=== PATIENT | female | born 1945 | race Caucasian/White ===

== ENCOUNTER → 2017-02-14 | Outpatient (CLI) | payer OTHER ==
[~2017-02-14] MED LIST: CETI10TA84 PO; LPT/40 PO; OFLO0.3S4 OPL; PRED1SUS3 OPL
== END | disposition home or self-care (01) ==
LOC: C.LABBFT 14:14
PROVIDERS: ATTEND Nurse Practitioner
DX: R39.9 Unspecified symptoms and signs involving the genitourinary system (principal)

== ENCOUNTER → 2017-03-29 | Outpatient (CLI) | payer OTHER ==
[2017-03-29 12:37] LABS: HEMATOCRIT 41.9 % (37-47); MEAN CELL VOLUME 90.1 fL (80-100); MEAN CORPUSCULAR HEMOGLOBIN 30.5 pg (25-34); MEAN CORPUSCULAR HGB CONC 33.9 g/dl (32-36); MEAN PLATELET VOLUME 11.5 fL (7.4-10.4); PLATELET COUNT 292 K/uL (130-400); RED BLOOD COUNT 4.65 M/uL (4.2-5.4); WHITE BLOOD COUNT 11.21 K/uL (4.8-10.8)
[2017-03-29 13:24] LABS: ALT/SGPT 19 U/L (12-78); BLOOD UREA NITROGEN 13 mg/dl (7-18); BUN/CREATININE RATIO 19.1 (10-20); CALCIUM 9.6 mg/dl (8.5-10.1); CARBON DIOXIDE 28 mmol/L (21-32); CHLORIDE 107 mmol/L (98-107); CHOLESTEROL 266 mg/dl (0-200); CREATININE 0.66 mg/dl (0.60-1.20); GLUCOSE 87 mg/dl (70-99); POTASSIUM 4.2 mmol/L (3.5-5.1); SODIUM 140 mmol/L (136-145); TRIGLYCERIDES 193 mg/dl (0-150); VERY LOW DENSITY LIPOPROT CALC 39 mg/dl
[2017-03-29 13:29] LABS: ALB/GLOB RATIO 1.2 (0.9-2); ALKALINE PHOSPHATASE 75 U/L (45-117); AST/SGOT 14 U/L (15-37); HDL CHOLESTEROL 44 mg/dl; LDL CHOLESTEROL CALCULATED 183 mg/dl
== END | disposition home or self-care (01) ==
LOC: C.LABBFT 10:12
PROVIDERS: ATTEND Nurse Practitioner
DX: E78.00 Pure hypercholesterolemia, unspecified (principal)

== ENCOUNTER 2019-12-26 00:12 | Inpatient (IN) ==
[2019-12-26 00:47] LABS: Basophils # (auto) 0.08 K/uL (0-0.2); Basophils % (auto) 0.6 %; Eosinophils # (auto) 0.93 K/uL (0-0.5); Eosinophils % (auto) 7.5 %; Hematocrit (blood only) 41.5 % (37-47); Hemoglobin 14.3 g/dL (12.0-16.0); Immature Granulocytes # (auto) 0.02 K/uL (0.00-0.02); Immature Granulocytes % (auto) 0.2 %; Lymphocytes # (auto) 3.13 K/uL (1.2-3.4); Lymphocytes % (auto) 25.2 %; Mean Corpuscular Hemoglobin 30.7 pg (25-34); Mean Corpuscular Hgb Conc 34.5 g/dL (32-36); Mean Corpuscular Volume 89.1 fL (80-100); Mean Platelet Volume 11.1 fL (7.4-10.4); Monocytes # (auto) 0.84 K/uL (0.11-0.59); Monocytes % (auto) 6.8 %; Neutrophils # (auto) 7.43 K/uL (1.4-6.5); Neutrophils % (auto) 59.7 %; Platelet Count 255 K/uL (130-400); RDW Coefficient of Variation 13.1 % (11.5-14.5); RDW Standard Deviation 42.5 fL (36.4-46.3); Red Blood Count 4.66 M/uL (4.2-5.4); White Blood Count 12.43 K/uL (4.8-10.8)
[2019-12-26] MEDS ORDERED: ASPIRIN CHEW 324 MG PO STA (00:48)
[2019-12-26] MEDS ORDERED: ONDANSETRON INJ 2 MG/ML 2 ML VIAL IV STA (00:48)
[2019-12-26] MEDS ORDERED: fentaNYL citrate 100 MCG/2 ML VIAL IV PRN (00:48)
[2019-12-26 00:50] LABS: iSTAT Creatinine 0.7 mg/dl (0.6-1.3); iSTAT Ionized Calcium 1.24 mmol/l (1.12-1.32); iSTAT Potassium 3.8 mmol/L (3.3-5.0)
--- NOTE | 2019-12-26 00:51 | Emergency Department Note ---
History of Present Illness General Chief complaint: Weakness Stated complaint: WEAK,RIGHT ARM PAIN,BEE STING Time Seen by Provider: 12/26/19 00:21 Source: patient Mode of arrival: ambulatory Limitations: no limitations History of Present Illness Provider complaint: Right arm pain Onset (ago): day(s) 2 Location: upper extremity Radiation: other (Chest) Severity: moderate Maximum Pain Intensity: 9 Quality: + constant Relieved By: + none Exacerbated By: + movement Associated symptoms: + diaphoresis, + nausea/vomiting, + shortness of breath and + other (Dizziness) Treatments prior to arrival: other (Tylenol) This is a 74-year-old female who presents from home complaining of right arm pain. Patient states 2 days ago she was stung by a yellow jacket in the right arm. Patient states she has had right arm pain since. Patient denies any overlying rash or sores, or swelling to the area of the envenomation. Patient also noticed yesterday that she had some mild pain in her chest. No radiation into the back, neck, or jaw. Patient states she had a mild headache yesterday and took some Tylenol and has not had a headache since. Patient was difficult to obtain a history from and was easily distracted by other things that were going on in the room with staff including her EKG. With additional persistent questioning, patient admitted to accompanying dizziness and shortness of breath which seemed worse with exertion. Patient describes going up the steps tonight and by the time she got to the top of the steps having increased chest pain, trouble breathing, dizziness, and sweating. Patient denies that she is ever had these symptoms previously. Patient denies any pain or discomfort into the left upper extremity. Patient denies any cardiac history. Patient denies any significant family history of coronary artery disease. Patient states she takes no medications. She denies use of tobacco or alcohol. Patient does admit to recent increased stress. Patient denies any change in bowel or bladder function, does admit to current nausea. Patient denies any history of gastritis/GERD. Pt seen during a time of high acuity and national emergency pandemic while wearing PPE. During questioning, nursing staff was able to obtain an EKG. While this did have some baseline artifact it was concerning for evolving ACS. I did ask for a repeat EKG to be immediately done to try and clear up the artifact and monitor for evolving changes. Home Medications Home Medications Medication Instructions Recorded Confirmed Type No Known Home Medications 12/26/19 12/26/19 History Allergies Allergy/AdvReac Type Severity Reaction Status Date / Time No Known Allergies Allergy Unknown ` Verified 12/26/19 00:47 Past Med/Surg History Social History Preferred Language: Burmese Communication Ability: Effective Business Operations Director Required: No Beliefs That Will Affect Care: None Current Living Situation: Spouse Other Information That Helps Us Care for You: No Feels Safe at Home: Yes Safety Concerns: Feels Safe At This Time Smoking Status: Never smoker Hx Alcohol Use: No Hx Substance Use: No Review of Systems See HPI for pertinent positives & negatives. and A total of 10 systems reviewed and were otherwise negative Physical Exam Vital Signs Vital Signs - 24 hr 12/26/19 00:14 12/26/19 00:23 12/26/19 01:11 Temperature 36.5 C Temperature Source Oral Pulse Rate 60 Pulse Rate [Right] 72 Pulse Rhythm [Right] Regular Pulse Strength [Right] Normal Respiratory Rate 20 16 Respiratory Effort / Characteristics Non-Labored Spontaneous Non-Labored Spontaneous Respiratory Depth Normal Normal Blood Pressure 160/77 H Blood Pressure [Right Arm] 167/72 H Blood Pressure Mean 104 Blood Pressure Mean [Right Arm] 103 Pulse Oximetry 100 95 96 Oxygen Delivery Method Room Air Room Air Room Air Sepsis Action Taken by Nursing No Action Required 12/26/19 01:22 Temperature Temperature Source Pulse Rate 62 Pulse Rate [Right] Pulse Rhythm [Right] Pulse Strength [Right] Respiratory Rate 16 Respiratory Effort / Characteristics Respiratory Depth Blood Pressure 148/94 H Blood Pressure [Right Arm] Blood Pressure Mean Blood Pressure Mean [Right Arm] Pulse Oximetry 98 Oxygen Delivery Method Room Air Sepsis Action Taken by Nursing GENERAL: alert, well appearing, well nourished, no distress, non-toxic, odd affect EYE EXAM: normal conjunctiva, PERRL and EOM's grossly intact OROPHARYNX: no exudate, no erythema, lips, buccal mucosa, and tongue normal and mucous membranes are moist NECK: supple, no nuchal rigidity, no adenopathy, non-tender LUNGS: Clear to auscultation. Normal chest wall mechanics, no w/r/r HEART: no murmurs, S1 normal and S2 normal, mild pain with palpation of the lower sternal border ABDOMEN: abdomen soft, non-tender, normo-active bowel sounds, no masses, no rebound or guarding. BACK: Back is symmetrical on inspection and there is no deformity, no midline tenderness, no CVA tenderness. SKIN: no rashes and no bruising UPPER EXTREMITIES: upper extremities are grossly normal. FROM, nml pulses b/l. No evidence of insect bite/sting or other envenomation. No urticaria, no edema, no cellulitis. No joint effusions, normal sensation bilaterally. No reproducible tenderness with palpation. LOWER EXTREMITIES: No pitting edema. FROM, nml pulses b/l. No calf tenderness bilaterally. NEURO EXAM: Normal sensorium, cranial nerves II-XII grossly intact, normal speech, no gross weakness of arms, no gross weakness of legs. Gross sensation intact. No facial droop. No ataxia. Course Course 0025: Due to concern for possible evolving ACS, despite no clear STEMI criteria, I asked that Dr. Segura be paged. I also involved case management to ascertain patient's PCP and try to obtain an old EKG. There were no old EKGs in our EMR. Orders were placed in anticipation of likely heart alert. After chest x-ray was performed at bedside I added aspirin, Zofran, and fentanyl. Nitroglycerin was avoided due to my concern for evolving right-sided NM. 0035: I contacted Dr. Segura, interventional cardiology. After discussion of atypical presentation and review or EKG, heart alert called at 0043. 0120: Dr. Segura now in the emergency room. Administered Medications Fentanyl Citrate (Fentanyl Citrate) 50 mcg IV Q15M PRN PRN Reason: Pain Stop: 01/09/20 00:47 Last Admin: 12/26/19 00:56 Dose: 50 mcg Documented by: [id number] Sodium Chloride (Nss 1000ml) 750 mls @ 100 mls/hr IV .Q7H30M SHERYL Stop: 12/26/19 09:59 Last Admin: 12/26/19 02:45 Dose: 100 mls/hr Documented by: [id number] Discontinued Medications Aspirin (Aspirin) 324 mg PO NOW STA Stop: 12/26/19 00:49 Last Admin: 12/26/19 00:56 Dose: 324 mg Documented by: [id number] Atropine Sulfate (Atropine Sulfate) Confirm Administered Dose 1 mg IV .[facility] ONE Stop: 12/26/19 01:46 Last Admin: 12/26/19 02:18 Dose: 0.5 mg Documented by: [id number] Eptifibatide (Integrilin (Pharmacy Operations Coordinator Use Only)) Confirm Administered Dose 40 mg IV .[facility] ONE Stop: 12/26/19 01:52 Last Admin: 12/26/19 02:18 Dose: 4.5 ml Documented by: [id number] Fentanyl Citrate (Fentanyl Citrate) Confirm Administered Dose 100 mcg .ROUTE .[facility] ONE Stop: 12/26/19 01:10 Last Admin: 12/26/19 02:16 Dose: 25 mcg Documented by: [id number] Heparin Sodium (Porcine) (Heparin Iv Bolus (Pharmacy Operations Coordinator Use Only)) Confirm Administered Dose 10,000 units .ROUTE .[facility] ONE Stop: 12/26/19 01:10 Last Admin: 12/26/19 02:17 Dose: 9,000 units Documented by: [id number] Heparin Sodium (Porcine) (Heparin Iv Bolus (Pharmacy Operations Coordinator Use Only)) Confirm Administered Dose 10,000 units .ROUTE .[facility] ONE Stop: 12/26/19 01:42 Last Admin: 12/26/19 02:22 Dose: Not Given Documented by: [id number] Heparin Sodium/Sodium Chloride (Heparin/Nss 1000 Unit/500ml Flush Bag) Confirm Administered Dose 3,000 units IV .[facility] ONE Stop: 12/26/19 01:11 Last Admin: 12/26/19 02:17 Dose: 3,000 units Documented by: [id number] Metoprolol Tartrate (Lopressor) Confirm Administered Dose 5 mg IV .[facility] [employer] ONE Stop: 12/26/19 01:56 Last Admin: 12/26/19 02:18 Dose: 2.5 mg Documented by: [id number] Midazolam HCl (Versed) Confirm Administered Dose 2 mg .ROUTE .[facility] ONE Stop: 12/26/19 01:11 Last Admin: 12/26/19 02:17 Dose: 1 mg Documented by: [id number] Nicardipine HCl (Cardene) Confirm Administered Dose 25 mg .ROUTE .[facility] ONE Stop: 12/26/19 01:10 Last Admin: 12/26/19 02:16 Dose: 25 mg Documented by: [id number] Nitroglycerin/Dextrose (Nitroglycerin/D5w 100 Mcg/Ml 20ml Syringe) Confirm Administered Dose 2,000 mcg .ROUTE .STK-MED ONE Stop: 12/26/19 01:11 Last Admin: 12/26/19 02:17 Dose: 2,000 mcg Documented by: [id number] Ondansetron HCl (Zofran) 4 mg IV NOW STA Stop: 12/26/19 00:49 Last Admin: 12/26/19 00:56 Dose: 4 mg Documented by: [id number] Ticagrelor (Brilinta) 180 mg PO ONE ONE Stop: 12/26/19 01:03 Last Admin: 12/26/19 01:04 Dose: 180 mg Documented by: [id number] Critical Care Time Critical Care Time: Yes Total Critical Care Time: 38 Critical care of 38 min performed to assess and manage high likelihood of life- threatening ACS, involving serial EKGs, labs, and imaging performed with asses sment to evaluate ACS diagnosis with frequent reassessment. This time includes bedside time, treatment discussions with patient/family/consultants, documentation time and excludes procedure time. Medical Decision Making Differential Diagnosis Differential diagnoses includes but is not limited to acute coronary syndrome, myocardial infarction, pericarditis, pulmonary embolus, aortic dissection, pneumonia, pneumothorax, musculoskeletal, shingles, esophageal. Medical Records Attestation: I reviewed the patient's medical records. Home Medications Current Medication List: was personally reviewed by me Laboratory Data Attestation: I reviewed the patient's lab results. Result diagrams: 12/26/19 00:30 12/26/19 00:30 Lab Results 12/26/19 12/26/19 12/26/19 Range/Units 00:30 00:30 00:30 WBC 12.43 H (4.8-10.8) K/uL RBC 4.66 (4.2-5.4) M/uL Hgb 14.3 (12.0-16.0) g/dL POC Hgb (12.0-16.0) g/dl Hct 41.5 (37-47) % POC Hct (37-47) % MCV 89.1 (80-100) fL MCH 30.7 (25-34) pg MCHC 34.5 (32-36) g/dL RDW Std Deviation 42.5 (36.4-46.3) fL RDW Coeff of Artie 13.1 (11.5-14.5) % Plt Count 255 (130-400) K/uL MPV 11.1 H (7.4-10.4) fL Immature Gran % (Auto) 0.2 % Neut % (Auto) 59.7 % Lymph % (Auto) 25.2 % [place] % (Auto) 6.8 % Eos % (Auto) 7.5 % Baso % (Auto) 0.6 % Neut # (Auto) 7.43 H (1.4-6.5) K/uL Lymph # (Auto) 3.13 (1.2-3.4) K/uL [place] # (Auto) 0.84 H (0.11-0.59) K/uL Eos # (Auto) 0.93 H (0-0.5) K/uL Baso # (Auto) 0.08 (0-0.2) K/uL Immature Gran # (Auto) 0.02 (0.00-0.02) K/uL PT 10.7 (9.0-12.0) Seconds INR 1.0 (0.9-1.1) APTT 26.5 (21.0-31.0) Seconds PTT Ratio 0.9 Activ Coag Time Kaolin (94-140) SECONDS POC Sodium (135-144) mmol/L Sodium 139 (136-145) mmol/L POC Potassium (3.3-5.0) mmol/L Potassium 3.7 (3.5-5.1) mmol/L POC Chloride (101-112) mmol/L Chloride 108 H (98-107) mmol/L Carbon Dioxide 27 (21-32) mmol/L POC Total CO2 (24-31) mmol/L Anion Gap 4.0 (3-11) POC Anion Gap (16-25) mmol/L POC BUN (7-18) mg/dl BUN 22 H (7-18) mg/dl Creatinine 0.89 (0.6-1.2) mg/dl POC Creatinine (0.6-1.3) mg/dl Est Cr Clr Drug Dosing Not Reportable Est GFR ( Amer) 73.5 Est GFR (Non-Af Amer) 63.4 BUN/Creatinine Ratio 24.4 H (10-20) Glucose 170 H (70-99) mg/dl POC Glucose (other) (70-99) mg/dl Calcium 9.5 (8.5-10.1) mg/dl POC Ioniz Calcium Juan David (1.12-1.32) mmol/l Magnesium 2.1 (1.8-2.4) mg/dl Total Bilirubin 0.3 (0.2-1) mg/dl AST 11 L (15-37) U/L ALT 18 (12-78) U/L Alkaline Phosphatase 78 (45-117) U/L Total Creatine Kinase 60 (26-192) U/L CK-MB (CK-2) 2.8 (0.5-3.6) ng/ml CK/CKMB % Calc 4.7 H (0-3.0) POC Troponin I (0-0.045) ng/ml Troponin I 0.364 H* (0-0.045) ng/ml Total Protein 7.3 (6.4-8.2) gm/dl Albumin 3.9 (3.4-5.0) gm/dl Globulin 3.4 (2.5-4.0) gm/dl Albumin/Globulin Ratio 1.1 (0.9-2) Lipase 102 (73-393) U/L TSH 1.410 (0.300-4.500) uIu/ml Blood Type Antibody Screen 12/26/19 12/26/19 12/26/19 Range/Units 00:35 00:38 00:50 WBC (4.8-10.8) K/uL RBC (4.2-5.4) M/uL Hgb (12.0-16.0) g/dL POC Hgb 15.0 (12.0-16.0) g/dl Hct (37-47) % POC Hct 44 (37-47) % MCV (80-100) fL MCH (25-34) pg MCHC (32-36) g/dL RDW Std Deviation (36.4-46.3) fL RDW Coeff of Artie (11.5-14.5) % Plt Count (130-400) K/uL MPV (7.4-10.4) fL Immature Gran % (Auto) % Neut % (Auto) % Lymph % (Auto) % [place] % (Auto) % Eos % (Auto) % Baso % (Auto) % Neut # (Auto) (1.4-6.5) K/uL Lymph # (Auto) (1.2-3.4) K/uL [place] # (Auto) (0.11-0.59) K/uL Eos # (Auto) (0-0.5) K/uL Baso # (Auto) (0-0.2) K/uL Immature Gran # (Auto) (0.00-0.02) K/uL PT (9.0-12.0) Seconds INR (0.9-1.1) APTT (21.0-31.0) Seconds PTT Ratio Activ Coag Time Kaolin (94-140) SECONDS POC Sodium 139 (135-144) mmol/L Sodium (136-145) mmol/L POC Potassium 3.8 (3.3-5.0) mmol/L Potassium (3.5-5.1) mmol/L POC Chloride 103 (101-112) mmol/L Chloride (98-107) mmol/L Carbon Dioxide (21-32) mmol/L POC Total CO2 24 (24-31) mmol/L Anion Gap (3-11) POC Anion Gap 17.0 (16-25) mmol/L POC BUN 21 H (7-18) mg/dl BUN (7-18) mg/dl Creatinine (0.6-1.2) mg/dl POC Creatinine 0.7 (0.6-1.3) mg/dl Est Cr Clr Drug Dosing Est GFR ( Amer) Est GFR (Non-Af Amer) BUN/Creatinine Ratio (10-20) Glucose (70-99) mg/dl POC Glucose (other) 171 H (70-99) mg/dl Calcium (8.5-10.1) mg/dl POC Ioniz Calcium Juan David 1.24 (1.12-1.32) mmol/l Magnesium (1.8-2.4) mg/dl Total Bilirubin (0.2-1) mg/dl AST (15-37) U/L ALT (12-78) U/L Alkaline Phosphatase (45-117) U/L Total Creatine Kinase (26-192) U/L CK-MB (CK-2) (0.5-3.6) ng/ml CK/CKMB % Calc (0-3.0) POC Troponin I 0.25 H (0-0.045) ng/ml Troponin I (0-0.045) ng/ml Total Protein (6.4-8.2) gm/dl Albumin (3.4-5.0) gm/dl Globulin (2.5-4.0) gm/dl Albumin/Globulin Ratio (0.9-2) Lipase (73-393) U/L TSH (0.300-4.500) uIu/ml Blood Type Cancelled Antibody Screen Cancelled 12/26/19 Range/Units 01:53 WBC (4.8-10.8) K/uL RBC (4.2-5.4) M/uL Hgb (12.0-16.0) g/dL POC Hgb (12.0-16.0) g/dl Hct (37-47) % POC Hct (37-47) % MCV (80-100) fL MCH (25-34) pg MCHC (32-36) g/dL RDW Std Deviation (36.4-46.3) fL RDW Coeff of Artie (11.5-14.5) % Plt Count (130-400) K/uL MPV (7.4-10.4) fL Immature Gran % (Auto) % Neut % (Auto) % Lymph % (Auto) % [place] % (Auto) % Eos % (Auto) % Baso % (Auto) % Neut # (Auto) (1.4-6.5) K/uL Lymph # (Auto) (1.2-3.4) K/uL [place] # (Auto) (0.11-0.59) K/uL Eos # (Auto) (0-0.5) K/uL Baso # (Auto) (0-0.2) K/uL Immature Gran # (Auto) (0.00-0.02) K/uL PT (9.0-12.0) Seconds INR (0.9-1.1) APTT (21.0-31.0) Seconds PTT Ratio Activ Coag Time Kaolin 384 H (94-140) SECONDS POC Sodium (135-144) mmol/L Sodium (136-145) mmol/L POC Potassium (3.3-5.0) mmol/L Potassium (3.5-5.1) mmol/L POC Chloride (101-112) mmol/L Chloride (98-107) mmol/L Carbon Dioxide (21-32) mmol/L POC Total CO2 (24-31) mmol/L Anion Gap (3-11) POC Anion Gap (16-25) mmol/L POC BUN (7-18) mg/dl BUN (7-18) mg/dl Creatinine (0.6-1.2) mg/dl POC Creatinine (0.6-1.3) mg/dl Est Cr Clr Drug Dosing Est GFR ( Amer) Est GFR (Non-Af Amer) BUN/Creatinine Ratio (10-20) Glucose (70-99) mg/dl POC Glucose (other) (70-99) mg/dl Calcium (8.5-10.1) mg/dl POC Ioniz Calcium Juan David (1.12-1.32) mmol/l Magnesium (1.8-2.4) mg/dl Total Bilirubin (0.2-1) mg/dl AST (15-37) U/L ALT (12-78) U/L Alkaline Phosphatase (45-117) U/L Total Creatine Kinase (26-192) U/L CK-MB (CK-2) (0.5-3.6) ng/ml CK/CKMB % Calc (0-3.0) POC Troponin I (0-0.045) ng/ml Troponin I (0-0.045) ng/ml Total Protein (6.4-8.2) gm/dl Albumin (3.4-5.0) gm/dl Globulin (2.5-4.0) gm/dl Albumin/Globulin Ratio (0.9-2) Lipase (73-393) U/L TSH (0.300-4.500) uIu/ml Blood Type Antibody Screen Imaging Data My Impression: X-ray: I interpreted the following studies. Chest: A single view study of the chest was reviewed and was negative for cardiomegaly, focal infiltrate, effusion, pulmonary edema, or wide mediastinum. ECG Data Attestation: I personally reviewed and interpreted this ECG as follows: Indication: + chest pain Rate (beats per minute): 60 Rhythm: + normal sinus ECG Intervals/blocks: + Normal QRS and + Normal QT ECG [place]: + Normal ECG ST segments: + ST depression (V2-V5, I and aVL) and + ST elevation (possible early 0.5mm in III, aVF) ECG Findings: + Other (Baseline artifact noted) Comparison ECG Date: no prior available Blood Pressure Blood Pressure Findings: Elevated blood pressure Blood Pressure Disposition: further management by hospitalist SHIRAZ Narrative 74-year-old female presenting from home with complaints of right arm pain and dizziness initially. Patient had concerning EKG and with additional questioning reported additional concerning symptoms. Serial EKGs were performed as a precaution and due to concern for artifact obscuring possible evolving ST elevat ion inferiorly. I contacted the director consumer affairs, Dr. Segura, to discuss the case. Labs had already been drawn and sent, bedside chest x-ray performed at that time. No evidence of obvious dissection or infiltrate on the chest x-ray. Patient given aspirin, Zofran, fentanyl. After additional discussion with Dr. Segura, Brilinta was also ordered. Patient remained hemodynamically stable. Nitro was avoided due to concern for right-sided infarct. Patient reported mild improvement in pain after fentanyl, and stated nausea was improved after addition of Zofran. Patient remained hemodynamically stable in the emergency room and was taken by Dr. Segura in the Pharmacy Operations Coordinator team for cardiac catheterization. An order was placed for continuous cardiac monitoring. The monitor shows a rate of 60 with normal sinus rhythm. Impression & Plan ACS (acute coronary syndrome), Arm pain, right, Dizziness, Nausea, Chest pain, FERNÁNDEZ (dyspnea on exertion) Discharge Plan Visit Data *Final* Discharge Date/Time: 12/26/19 01:22 Chief Complaint: Weakness Stated Complaint: WEAK,RIGHT ARM PAIN,BEE STING ED Provider: Clarissa Craven Discharge Problem: ACS (acute coronary syndrome), Arm pain, right, Dizziness, Nausea, Chest pain, FERNÁNDEZ (dyspnea on exertion) Patient Disposition: Still a Patient Discharge Instructions Interventions: ED Discharge Assessment Last Done: 12/26/19 01:22 Discharge Problem: Chest pain Qualifiers: Chest pain type: chest pain due to myocardial ischemia Ischemic chest pain type: unspecified angina pectoris type Qualified Code(s): I25.9 - Chronic ischemic heart disease, unspecified
[2019-12-26 01:00] LABS: Partial Thromboplastin Ratio 0.9; Partial Thromboplastin Time 26.5 Seconds (21.0-31.0); Prothrombin Time 10.7 Seconds (9.0-12.0)
[2019-12-26] MEDS ORDERED: TICAGRELOR 90 MG TAB PO ONE (01:02)
[2019-12-26 01:05] LABS: Alanine Aminotransferase 18 U/L (12-78); Albumin Level 3.9 gm/dl (3.4-5.0); Aspartate Aminotransferase 11 U/L (15-37); BUN Creatinine Ratio 24.4 (10-20); Blood Urea Nitrogen 22 mg/dl (7-18); Calcium 9.5 mg/dl (8.5-10.1); Carbon Dioxide 27 mmol/L (21-32); Chloride 108 mmol/L (98-107); Est GFR (African American) 73.5; Est GFR (Non-African American) 63.4; Glucose 170 mg/dl (70-99); Lipase 102 U/L (73-393); Magnesium 2.1 mg/dl (1.8-2.4); Potassium 3.7 mmol/L (3.5-5.1); Sodium 139 mmol/L (136-145)
[2019-12-26] MEDS ORDERED: HEPARIN (PORCINE) 1000 UNIT/ML 10 ML (CATH LAB USE ONLY) ONE ×2 (01:09→01:41)
[2019-12-26] MEDS ORDERED: fentaNYL citrate 100 MCG/2 ML VIAL ONE (01:09)
[2019-12-26] MEDS ORDERED: NiCARDipine HCL INJ 2.5 MG/ML 10 ML AMP ONE (01:09)
[2019-12-26] MEDS ORDERED: MIDAZOLAM HCL 1 MG/ML 2ML VIAL ONE (01:10)
[2019-12-26] MEDS ORDERED: NITROGLYCERIN/D5W 100MCG/ML 20ML SYR ONE (01:10)
[2019-12-26 01:19] LABS: Albumin Globulin Ratio 1.1 (0.9-2); Alkaline Phosphatase 78 U/L (45-117); Bilirubin,Total 0.3 mg/dl (0.2-1); Creatine Kinase 60 U/L (26-192); Creatine Kinase MB 2.8 ng/ml (0.5-3.6); Globulin 3.4 gm/dl (2.5-4.0); Total Protein 7.3 gm/dl (6.4-8.2); Troponin I 0.364 ng/ml (0-0.045)
--- NOTE | 2019-12-26 01:30 | Pre Anesthesia Assessment ---
Date of Service December 26, 2019 Pre Sedation Assessment Vital Signs Temp Pulse Pulse Resp BP BP Pulse Ox 12/26/19 01:22 62 16 148/94 H 98 12/26/19 01:11 72 16 167/72 H 96 12/26/19 00:23 95 12/26/19 00:14 97.7 F 60 20 160/77 H 100 Cardiovascular RRR, no murmur, no edema Respiratory normal respiratory effort, lungs clear to auscultation Pre-Sedation Airway Assessment Smoking Status: Former smoker Hx Sleep Apnea: No Hx Difficult Intubation: No Short, Thick Neck: No Thyromental Distance: > or= 3.5 Finger Breadths Mallampati Class: II ASA: ASA3 Procedure Planning Contraindications for Sedation: none Current Medications Reviewed: Yes Notes The planned sedation has been discussed with the patient. Informed Consent was obtained. I have identified the patient, determined the appropriateness of sedation and have assessed the patient immediately prior to the procedure. All medicine(s) and interventions are by my order.
--- NOTE | 2019-12-26 01:30 | Cardiology Consultation ---
Date of Consultation December 26, 2019 Assessment & Plan (1) ACS (acute coronary syndrome): Presentation concerning for inferior/posterior STEMI and recommend proceeding with emergent cardiac catheterization and possible primary PCI. No apparent contraindications to procedure. Discussed risks, benefits, alternatives of procedure with patient and they are willing to proceed. Given ticagrelor 180 mg in the ED. Further recommendations pending findings of coronary angiography. History of Present Illness History of Present Illness 74-year-old woman here with acute chest symptoms and ECG concerning for acute OK. Patient seen emergently in the ED after heart alert activated after serial ECGs. No prior cardiac history. Cardiac risk factors include untreated dyslipidemia with prior LDL of 228. Denies other significant medical issues and is on no medications. Patient describes right arm pain/numbness for the last 2 days which she initially attributed to a bee sting. During this time she has been more short of breath with exertion. Tonight symptoms were worse and had an episode where when attempting to go upstairs became dizzy and felt like she was going to pass out. This was associated with a cramping epigastric discomfort and diaphoresis. Denies similar symptoms in the past. Hemodynamically stable on arrival. ECG showed borderline inferior ST elevations with ST depressions in V1 through V3. Initial troponin positive at 0.364. Allergies Allergy/AdvReac Type Severity Reaction Status Date / Time No Known Allergies Allergy Unknown ` Verified 12/26/19 00:47 Home Medications Home Medications Medication Instructions Recorded Confirmed Type No Known Home Medications 12/26/19 12/26/19 History Patient History Social History Preferred Language: [place] Feels Safe at Home: Yes Smoking Status: Former smoker Review of Systems Review of Systems: Not obtained in the setting of emergent situation Physical Exam Physical Exam: General: Comfortable, no acute distress HEENT: Sclerae anicteric, mucous membranes moist Lungs: Clear to auscultation bilaterally, no rhonchi or wheezes Cardiac: Regular rate and rhythm, no murmurs. No JVD. Abdomen: Soft, nontender, nondistended, positive bowel sounds. Extremities: Warm, well perfused, no edema. 2+ radial pulses Skin: No rashes or lesions. Neuro: Nonfocal Psych: Alert orient x3, normal affect and mood Results & Data ([facility]) Vital Signs (Past 12 Hours) Vital Signs Temp Pulse Pulse Resp BP BP Pulse Ox 12/26/19 01:22 62 16 148/94 H 98 12/26/19 01:11 72 16 167/72 H 96 12/26/19 00:23 95 12/26/19 00:14 97.7 F 60 20 160/77 H 100 PG Care Time/CCT Total # of Minutes Spent Total Time Spent with Patient: Total time spent is greater than 50% in coordination of care (as documented) at patient's floor/unit and/or counseling patient: Coding Level of Care Code 44505 Initial Inpt Care Lvl 3 Diagnoses ACS (acute coronary syndrome) I24.9
[2019-12-26] MEDS ORDERED: ATROPINE SULFATE 0.1 MG/ML 10ML SYR IV ONE (01:45)
[2019-12-26] MEDS ORDERED: EPTIFIBATIDE 2 MG/ML 10 ML VIAL (CATH LAB USE ONLY) IV ONE (01:51)
[2019-12-26] MEDS ORDERED: METOPROLOL TARTRATE 1 MG/ML VIAL IV ONE (01:55)
[2019-12-26] MEDS ORDERED: ONDANSETRON INJ 2 MG/ML 2 ML VIAL IV PRN (02:29)
[2019-12-26] MEDS ORDERED: ACETAMINOPHEN 325 MG TAB PO PRN (02:29)
[2019-12-26] MEDS ORDERED: ICU PROTOCOL FOR HYPERGLYCEMIA PRN (02:29)
[2019-12-26] MEDS ORDERED: SODIUM CHLORIDE 0.9% 1000ML 750 ML IV SCH (02:30)
--- NOTE | 2019-12-26 02:53 | Cardiac Catheterization ---
[facility] Data: Craps Dealer Cardiac Status Clinical evaluation leading to the procedure CAD Presenation: STEMI Anginal Classification: CCS IV Heart Failure: No Cardiogenic Shock within 24 Hours: No Cardiac Arrest within 24 Hours: No Imaging Studies Past 6 Months: No Stress Studies Past 6 Months: No Left Ventricular Angiography EF (%): 55 Wall Motion: Inferior Diagnostic Physicians Name: Efraín Segura MD Status: Emergency Closure Device Percutaneous Entry Location: Radial Closure Device: Radial Band Recommendations: PCI without planned CABG PCI Indication: Immediate PCI for STEMI First Noted: Subsequent EKG Lesion Segment Name: Mid RCA Culprit Artery: Yes Stenosis Prior to Rx (%): 100 Chronic Total Occlusion: No IVUS: No FFR: No Pre-Procedure LINCOLN Flow: 0 Previously Treated Lesion: No Lesion Complexity: Non-High/Non-C Lesion Length (mm): 15 Thrombus Present: Yes Bifurcation Lesion: No Guidewire Across Lesion: Stenosis Post-Procedure (%): 0 Post-Procedure LINCOLN Flow: 3 Devices(s) Deployed: Yes Yes Intraprocedure Events Significant Disection: No Perforation: No Cardiac Cath Procedure Full Procedure Date December 26, 2019 Pre-Procedure Diagnosis Pre-Procedure Diagnosis: STEMI AUC Score AUC Score: 9 Post-Procedure Diagnosis Post-Procedure Diagnosis: Severe CAD, Successful PCI and Elevated Intracardiac Pressures Procedure(s) Performed Procedure(s) Performed: Coronary Angiography, Left Heart Cath, LV Angiography and Drug Eluting Stent Cissp Efraín Segura MD Earth Science Technical Officer(s) Cooper Estimated Blood Loss Estimated Blood Loss: 15 Medication(s) Medication(s): Adenosine, Fentanyl, Heparin, Integrilin, Lidocaine 1%, Metoprolol, Nicardipine, Nitroglycerin and Versed Medication(s): Ticagrelor Summary of Findings Indication: STEMI/Heart Alert Access: 6 Fr right radial artery Catheters: [place], JR4 guide, pigtail Findings: LM -medium caliber, angiographically normal LAD -diffuse up to 50% proximal to mid disease extending across takeoff of first diagonal. Medium caliber first diagonal with 90% focal proximal stenosis. Small distal LAD without significant disease and wraps around apex. Circumflex -small caliber, 40% ostial stenosis, 30 to 40% mid segment disease extending into into bifurcating OM1 RCA -dominant, medium caliber, proximal to mid luminal irregularities, 100% mid occlusion LVEDP -8 LVEF 55% with inferior hypokinesis -- PCI -- Antithrombotic therapy: Heparin, ticagrelor, IC Integrilin Procedure: RCA cannulated with JR4 guide [employer] Field Agent 50 wire passed across lesion into distal vessel Mid RCA lesion predilated with 2.5 compliant balloon After reestablish flow noted to have severe latemid into distal stenosis which was dilated with 2.5 balloon Temporary obstruction of largest/distal PLB after angioplasty thought secondary to thrombus and started on IC Integrilin With reestablish flow had brief bradycardia requiring atropine Dilated distal lesion stented with 3.0 x 18 mm [place] Mid RCA lesion stented with 3.5 x 22 mm [place] Stents post-dilated with 3.5 noncompliant balloon IC vasodilators administered for spasm Post procedure LINCOLN 3 flow, stents well expanded with minimal residual stenosis and no apparent cardiac complications. Arterial Closure: TR band Summary: 1. Inferior/posterior STEMI. 100% occluded mid RCA 2. Multivessel non-culprit coronary artery disease -Up to 50% diffuse proximal to mid LAD disease First diagonal with 90% focal proximal stenosis 40% ostial circumflex, 40% mid segment disease extending into OM1 3. Normal intracardiac filling pressure 4. Preserved LV function with inferior hypokinesis 5. Successful PCI of mid to distal RCA with 2 drug-eluting stents (3.5 x 22, 3.0 x 18 [place]). Recommendations: Admit to ICU for continued monitoring Loaded with ticagrelor 180 mg Continue dual-antiplatelet therapy for at least 1 year. Trend troponins until peak, Check Echo Uptitrate beta-nanette/EVIE as BP allows High-dose statin Consult cardiac Rehab Plan to medically manage residual non-culprit coronary artery disease. Hemodynamics Rest Ao:: 176/83/144 Final Ao: 131/76/97 LV: 128/8 Recommendations Recommendations: PCI without planned CABG Specimens Specimens: None Radiation Exposure (mGy) 458 Contrast (mls) 95 Fluids (cc crystalloids) Fluids (cc crystalloids): 100 Drains Drains: None Anesthesia Moderate Procedural Complication(s) None Disposition ICU I attest to the content of the Intraoperative Record and any orders documented therein. Any exceptions are noted below. [employer] Card Cath Procedure Codes Cardiac Catheterization Procedure 1: Cardiovascular Cath Procedures: 00682 Coronaries and LHC (+/-LV) Moderate Sedation Procedure 1: Sedation/Anesthesia: 03013 Mod Sedation by the same physician;Init15 Min Child Age 5 & Up Procedure 2: Sedation/Anesthesia: 49961 Mod Sedation by the same physician; Ea [id number] Minutes Stenting Procedure 1: Cardiovascular Stent Procedures: 27471 Perc transluminal revascularization of acute sub/total occl, aMI PG Care Time/CCT Total # of Minutes Spent Total Time Spent with Patient: Total time spent is greater than 50% in coordination of care (as documented) at patient's floor/unit and/or counseling patient:
--- NOTE | 2019-12-26 03:00 | Critical Care Consultation ---
Date of Consultation December 26, 2019 Assessment & Plan (1) STEMI (ST elevation myocardial infarction): Reason Critically Ill: 74-year-old female presents to the ICU for STEMI, now status post LISET x2 to the RCA Neuro - CAM ICU: Negative Cardiac - STEMI/CAD/HLDinitial EKG with inferior ST elevation and ST depression V1V3, troponin 0.364 -S/p LISET x2 to the mid to distal RCA for 100% occlusion, loaded with Brilinta; multivessel non-culprit CAD (see Composite Technician report for details) -Per Composite Technician report patient has preserved LV function of 50% with inferior hypokinesis, follow-up echo -Trend troponins for peak -Follow-up lipid panel -Patient undergo 1 year dual antiplatelet therapy, starting high-dose statin -Starting MTP and lisinopril -Patient to undergo cardiac rehab on discharge -Continuous monitor on telemetry in ICU for now Respiratory - Currently maintaining sats on room air, no history of respiratory disease Continue to monitor on continuous pulse ox GI - Heart healthy diet RENAL/LYTES - Creatinine within normal limits Maximize electrolytes and replete as indicated - Strict I's and O's ENDO - No history of diabetes, follow-up hemoglobin A1c -ICU hyperglycemic protocol TSH within normal limits HEME - H&H stable, monitor routine CBCs ID - No indication for infectious process at this time LINES/IV ACCESS - Peripheral IVs DVT PROPHYLAXIS - SCDs, subcu heparin Thank you for allowing us to participate in the care of this patient. Please refer to my attending physician's documentation for any further recommendations. Supervising Physician Co-Signing Physician Notes Patient seen and examined. EMR reviewed. Discussed case with critical care BLAZE overnight. Agree with his assessment and plan as noted. 74-year-old female presenting with right arm numbness and pain is well as presyncope and epigastric pain. EKG showed inferior OH. She was taken to the Composite Technician. 100% occlusion of the mid RCA was noted and drug-eluting stent was placed. She is admitted to the ICU overnight for observation. This morning the patient is pain-free. She is having no additional nausea. Her left arm numbness has resolved. She is hemodynamically stable. No evidence of bleeding complications. She did have a 7 beat run of nonsustained ventricular tachycardia which resolved spontaneously. Continue telemetry We will continue to monitor post cardiac catheterization. She is receiving metoprolol as well as Zestril, Lipitor, Brilinta, and aspirin. We will continue to trend troponin. Ultimate disposition per cardiology and primary admitting service. History of Present Illness Attending Physician: Efraín Segura MD History of Present Illness Patient is a 74-year-old female with PMH of dyslipidemia, not currently on medications, presented to the emergency department with complaints of pain/numbness in her right arm which was ongoing for the past 2 days with associated shortness of breath and an episode of dizziness while climbing stairs. She also exhibited cramping epigastric pain and diaphoresis. EKG showed borderline inferior ST elevations with ST depressions in V1 to V3, and troponin elevated at 0.364. Heart alert was initiated and patient was taken to Composite Technician, where she was found to have 100% occlusion of the mid RCA and multivessel non-culprit CAD, and 50% LV function with inferior hypokinesis. She underwent successful PCI of the mid to distal RCA with 2 drug-eluting stents, and was given loading dose of Brilinta. She was transferred to the ICU for further management at this time. Currently patient presents to the ICU alert and oriented and is hemodynamically stable. Patient states that she is no longer experiencing right arm numbness or epigastric pain. She currently denies dizziness, syncope, shortness of breath, palpitations, chest pain, tingling or numbness, nausea or vomiting, or abdominal pain. She denies recent illness or fevers. 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 Beliefs That Will Affect Care: None Current Living Situation: Spouse Other Information That Helps Us Care for You: No Feels Safe at Home: Yes Safety Concerns: Feels Safe At This Time Smoking Status: Never smoker Hx Alcohol Use: No Hx Substance Use: No Review of Systems Review of Systems: All systems reviewed & are unremarkable except as noted in HPI & below Physical Exam Constitutional: cooperative and comfortable Eyes: PERRL, conjunctivae normal, anicteric sclerae ENMT: external ear and nose normal, oropharynx normal Neck: trachea midline, no thyromegaly Respiratory: normal respiratory effort, lungs clear to auscultation Cardiovascular: RRR, no murmur, no edema Heart Sounds: normal S1 and normal S2 Vessels: no JVD Extremities: normal capillary refill; no edema Gastrointestinal (Abdomen): normal bowel sounds, soft, nontender, no hepatosplenomegaly Musculoskeletal: no cyanosis or clubbing, extremities motor strength 5/5 Skin: no rashes, warm and dry Neurologic: PERRL, EOMI, accommodation nl, no face palsy, no dysarthria Psychiatric: A+Ox3, euthymic affect Results & Data Results & Data ([facility]) Vital Signs (Past 12 Hours) Vital Signs Temp Pulse Pulse Resp BP BP Pulse Ox 12/26/19 02:18 116 H 143/85 H 12/26/19 01:22 62 16 148/94 H 98 12/26/19 01:11 72 16 167/72 H 96 12/26/19 00:23 95 12/26/19 00:14 36.5 C 60 20 160/77 H 100 Coding Level of Care Code 69232 Inpt Consult Level 5 Diagnoses STEMI (ST elevation myocardial infarction) I21.3
--- NOTE | 2019-12-26 03:54 | History & Physical Report ---
Date of Service December 26, 2019 Assessment & Plan (1) STEMI (ST elevation myocardial infarction): 74 year old woman with no major pmh here for STEMI STEMI RAD 100% occulded s/p cath revascularization and LISET x2 CAD noncontributory in several other vessels Started on statin, asa,ticagrelor, lisinopril and metoprolol, can uptitrate as tolerated Will continue to trend troponins Echo in AM HLD Started on Atorvastatin 80 mg Dispo: ICU for monitoring s/p cath and stent placement DVT PPx: SubQ Heparin F/E/N: NSS 100 mls/hour DNR/DNI (2) Arm pain, right: (3) Dizziness: (4) Nausea: (5) Chest pain: (6) FERNÁNDEZ (dyspnea on exertion): (7) ACS (acute coronary syndrome): Admission and Anticipated Discharge Date Admission Date: December 26, 2019 History of Present Illness Chief Complaint: Amisha Amaral is a 74 year old woman with a past medical history significant only for hyperlipidemia on no home medications who presents today after several days of right arm pain and progressive dyspnea and a few hours of acute epigastric pain, diaphoresis and nausea. Patient was bitten by a yellow jacket 2-3 days ago and has continuing right arm pain and has had shortness of breath which has been progressive since before then climbing the eighteen steps in her new apartment. Several weeks ago it felt good to walk those eighteen steps now she gets short of breath and winded easily with this exertion and also has dizziness. She has not noted any chest pain with exertion. Patient's mother had a major heart attack in her 50's , she is a former smoker in her teenage years but cannot recall how long ago or for how long she smoked "very briefly", has a history of HLD, no history of hypertension, DM, or other atherosclerotic disease. On presentation to the emergency department patient was found to be hypertensive but otherwise vital signs were within normal limits, EKG was obtained showing ST elevations in inferior leads and ST depressions in V1-V3. Patient's labwork was significant for an elevation in her troponin to .364. Heart alert was called and patient was taken emergently to the open hearth furnace laborer. In open hearth furnace laborer patient was found to have 100 percent occlusion of the RCA artery and nonocclusive non culprit plaque formation in several other vessels including -Up to 50% diffuse proximal to mid LAD diseaseFirst diagonal with 90% focal proximal [id number]% ostial circumflex, 40% mid segment disease extending into OM1. RCA stented x2 LISET and patient was admitted to ICU. Patient is sleeping comfortably now, no complaints at this time. 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 Beliefs That Will Affect Care: None Current Living Situation: Spouse Other Information That Helps Us Care for You: No Feels Safe at Home: Yes Safety Concerns: Feels Safe At This Time Smoking Status: Never smoker Hx Alcohol Use: No Hx Substance Use: No Review of Systems Constitutional: + fatigue; no fever, no chills, no weakness, no weight loss and no weight gain Eyes: no problem reported Respiratory: + dyspnea on exertion; no cough, no dyspnea and no pain on inspiration Cardiovascular: + chest pain (epigastric discomfort, resolved at present) and + dyspnea on exertion; no palpitations, no lightheadedness, no syncope, no edema and no calf pain Gastrointestinal: + abdominal pain (epigastric pain) and + nausea; no vomiting, no constipation and no diarrhea/loose stools Physical Exam Constitutional: well developed, well nourished and average body habitus; no acute distress Eyes: PERRL, conjunctivae normal, anicteric sclerae ENMT: external ear and nose normal, oropharynx normal Respiratory: normal respiratory effort, lungs clear to auscultation Cardiovascular: Rate/Rhythm: regular rate and regular rhythm Heart Sounds: no click, no gallop, no murmur and no cardiac rub Vessels: dorsalis pedis pulses present Extremities: no pedal edema and no edema Gastrointestinal (Abdomen): normal bowel sounds, soft, nontender, no hepatosplenomegaly Results & Data Results & Data ([facility]) Vital Signs (Past 12 Hours) Vital Signs Temp Pulse Pulse Resp BP BP Pulse Ox 12/26/19 03:30 79 16 99 12/26/19 03:25 72 16 116/73 98 12/26/19 03:15 75 16 98 12/26/19 03:10 77 14 111/71 96 12/26/19 03:00 82 17 98 12/26/19 02:55 83 18 117/72 96 12/26/19 02:51 36.5 C 83 16 134/83 98 12/26/19 02:45 85 19 96 12/26/19 02:39 84 18 97 12/26/19 02:33 85 20 134/83 95 12/26/19 02:32 86 12/26/19 02:18 116 H 143/85 H 12/26/19 01:22 62 16 148/94 H 98 12/26/19 01:11 72 16 167/72 H 96 12/26/19 00:23 95 12/26/19 00:14 36.5 C 60 20 160/77 H 100 Code Status & VTE Plan VTE Prophylaxis Plan VTE Prophylaxis will be ordered: Yes Critical Care Time Critical Care Time: Yes Total Critical Care Time: 40 Total critical care time was 40 minutes Supervising Physician Co-Signing Physician Notes Attending addendum: I have physically seen this patient, have supervised the medical residents activities, and agree with the H&P unless as otherwise noted. Assessment and Plan: STEMI/heart alert- Cardiac catheterization revealed 100% mid RCA lesion, treated with LISET x2. Post-cath orders per Dr. Segura Continue aspirin, Brilinta, lisinopril, metoprolol and statin. Monitor for arrhythmias, serial troponins and echocardiogram in the a.m. Hyperlipidemia- atorvastatin 80 mg daily begun tonight. Remaining orders and notations as noted. Resident Activity Tracking Resident Involvement: Resident Care Provided Care Provided: Adult Hospital Medicine (1) Chest pain Chest pain type: chest pain due to myocardial ischemia Ischemic chest pain type: unspecified angina pectoris type Qualified Code(s): I25.9 - Chronic ischemic heart disease, unspecified
[2019-12-26] MEDS: POTASSIUM CHLORIDE / WTR 10 MEQ/100 ML PLCT IV SCH ×2 (04:06→05:11)
[2019-12-26 05:08] LABS: Basophils # (auto) 0.03 K/uL (0-0.2); Basophils % (auto) 0.3 %; Eosinophils # (auto) 0.08 K/uL (0-0.5); Eosinophils % (auto) 0.7 %; Hematocrit (blood only) 38.6 % (37-47); Hemoglobin 13.1 g/dL (12.0-16.0); Immature Granulocytes # (auto) 0.03 K/uL (0.00-0.02); Immature Granulocytes % (auto) 0.3 %; Lymphocytes # (auto) 1.81 K/uL (1.2-3.4); Lymphocytes % (auto) 15.1 %; Mean Corpuscular Hemoglobin 30.3 pg (25-34); Mean Corpuscular Hgb Conc 33.9 g/dL (32-36); Mean Corpuscular Volume 89.1 fL (80-100); Mean Platelet Volume 11.5 fL (7.4-10.4); Monocytes # (auto) 0.39 K/uL (0.11-0.59); Monocytes % (auto) 3.3 %; Neutrophils # (auto) 9.66 K/uL (1.4-6.5); Neutrophils % (auto) 80.3 %; Platelet Count 209 K/uL (130-400); RDW Coefficient of Variation 13.2 % (11.5-14.5); RDW Standard Deviation 43.2 fL (36.4-46.3); Red Blood Count 4.33 M/uL (4.2-5.4)
[2019-12-26 06:20] LABS: Estimated Average Glucose 117 mg/dl; Hemoglobin A1C 5.7 % (4.5-5.6)
[2019-12-26 06:42] LABS: BUN Creatinine Ratio 26.7 (10-20); Calcium 8.8 mg/dl (8.5-10.1); Creatinine Clr Calc Pharmacy 52.8 ml/min; Est GFR (African American) 98.7; Est GFR (Non-African American) 85.2; Potassium 4.2 mmol/L (3.5-5.1)
[2019-12-26 06:45] LABS: Phosphorus 2.9 mg/dl (2.5-4.9)
--- NOTE | 2019-12-26 07:34 | XRay Report ---
XR chest 1V portable HISTORY: Atypical Chest pain COMPARISON: None. FINDINGS: No pneumothorax. No pleural effusions. The heart is borderline enlarged. There is mild diff use interstitial thickening. No focal lung consolidations to suggest pneumonia. IMPRESSION: Mild diffuse interstitial thickening. This could be chronic or due to mild congestive change. ACT 112: Negative or not required by law. Electronically signed by: Karthik Castillo M.D. 12/26/2019 7:33 AM
--- NOTE | 2019-12-26 08:25 | XCELERA ---
[id number]
[2019-12-26] MEDS: ATORVASTATIN 40 MG TAB PO SCH (08:48)
[2019-12-26] MEDS: lisinopriL 5 MG TAB PO SCH (08:48)
[2019-12-26] MEDS: ASPIRIN 81 MG ECTAB PO SCH (08:48)
[2019-12-26] MEDS ORDERED: METOPROLOL TARTRATE 25 MG TAB PO SCH ×2 (09:00→21:00)
--- NOTE | 2019-12-26 11:59 | Electrocardiogram Report ---
Test Reason : Blood Pressure : / mmHG Vent. Rate : 084 BPM Atrial Rate : 084 BPM P-R Int : 174 ms QRS Dur : 076 ms QT Int : 394 ms P-R-T Axes : 064 024 -12 degrees QTc Int : 465 ms Normal sinus rhythm ST depression in Anteroseptal leads Abnormal ECG When compared with ECG of 26-DEC-2019 00:26, ST elevation in Inferior leads no longer present Confirmed by Mario Lopez ([id number]) on 12/26/2019 11:58:56 AM Referred By: REFERRED SELF Confirmed By:Mario Lopez
--- NOTE | 2019-12-26 13:06 | Hospitalist Progress Note ---
Date of Service December 26, 2019 Assessment & Plan (1) STEMI (ST elevation myocardial infarction): 74 year old woman with hyperlipidemia otherwise healthy here for STEMI now s/p LISET x2 STEMI - RAD 100% occluded s/p cath revascularization and LISET x2 - 1 year of dual antiplatelet with asa and ticagrelor - Started on statin, lisinopril and metoprolol, can up titrate as tolerated - Troponins most recently 18, up from 14.4 @ 6:45 - Echo w/ preserved LV function w/ wall motion abnormality - cardiac rehab on discharge Multivessel disease non-culprit CAD - up to 50% prox-mid LAD - medical management as above HLD - total cholesterol 234, LDL 169, HDL 45 - Started on Atorvastatin 80 mg Prediabetic, new diagnosis - HA1c 5.7 - continue to monitor and follow up outpatient Dispo: ICU for monitoring s/p cath and stent placement DVT PPx: SubQ Heparin F/E/N: regular diet Code: DNR/DNI (2) Arm pain, right: (3) Dizziness: (4) Nausea: (5) Chest pain: (6) FERNÁNDEZ (dyspnea on exertion): (7) ACS (acute coronary syndrome): Admission and Anticipated Discharge Date Admission Date: December 26, 2019 Supervising Physician Co-Signing Physician Notes Resident Physician Supervision Note: I independently interviewed and examined the patient and verified the bernstein history and physical, reviewed labs and image studies, discussed the case with the resident Dr. Vail and agree with the findings and care plan. Subjective Amisha Amaral was doing okay this morning, she was tired. Nursing informed me that she was tolerating her beta nanette, but did have a 9 beat run of asymptomatic V-tach. Patient brought up that she is relatively healthy and eats lots of vegetables, exercises regularly and had never used tobacco. She was very surprised that this happened to her. Review of Systems Review of Systems: Constitutional: denies fevers, chills Cardiac: denies chest pain or palpitations GI: denies nausea or vomiting : denies urinary frequency, urgency, pain Physical Exam Constitutional: WD/WN, vitals as above - tired appearing Eyes: PERRL, conjunctivae normal, anicteric sclerae ENMT: external ear and nose normal, oropharynx normal Neck: normal visual inspection Respiratory: normal respiratory effort, lungs clear to auscultation Cardiovascular: RRR, no murmur, no edema Gastrointestinal (Abdomen): - normal bowel sounds, soft Skin: no rashes, warm and dry Results & Data Results & Data ([facility]) Vital Signs (Past 12 Hours) Vital Signs Temp Pulse Pulse Resp BP BP Pulse Ox 12/26/19 08:00 63 12/26/19 03:54 36.4 C L 69 19 120/80 98 12/26/19 03:30 79 16 99 12/26/19 03:25 72 16 116/73 98 12/26/19 03:15 75 16 98 12/26/19 03:10 77 14 111/71 96 12/26/19 03:00 82 17 98 12/26/19 02:55 83 18 117/72 96 12/26/19 02:51 36.5 C 83 16 134/83 98 12/26/19 02:45 85 19 96 12/26/19 02:39 84 18 97 12/26/19 02:33 85 20 134/83 95 12/26/19 02:32 86 12/26/19 02:18 116 H 143/85 H 12/26/19 01:22 62 16 148/94 H 98 12/26/19 01:11 72 16 167/72 H 96 CBC Results Results Complete Blood Count Results: RBC 4.23 M/uL (4.2-5.4) 12/27/19 WBC 9.95 K/uL (4.8-10.8) 12/27/19 Hgb 12.7 g/dL (12.0-16.0) 12/27/19 Hct 37.8 % (37-47) 12/27/19 Plt Count 230 K/uL (130-400) 12/27/19 Chemistry (BMP) Results BMP Results: Sodium 141 mmol/L (136-145) 12/27/19 Potassium 3.8 mmol/L (3.5-5.1) 12/27/19 Chloride 112 mmol/L (98-107) H 12/27/19 BUN 16 mg/dl (7-18) 12/27/19 Creatinine 0.69 mg/dl (0.6-1.2) 12/27/19 Glucose 90 mg/dl (70-99) 12/27/19 Resident Activity Tracking Resident Involvement: Resident Care Provided Care Provided: Adult Hospital Medicine (1) Chest pain Chest pain type: chest pain due to myocardial ischemia Ischemic chest pain type: unspecified angina pectoris type Qualified Code(s): I25.9 - Chronic ischemic heart disease, unspecified
--- NOTE | 2019-12-26 14:10 | Cardiology Progress Note ---
Date of Service December 26, 2019 Assessment & Plan (1) STEMI (ST elevation myocardial infarction): --Post primary PCI with 2 LISET to RCA 2. Multivessel non-culprit coronary artery disease Moderate circumflex/proximal disease with 90% focal stenosis in proximal D1 3. Preserved LV function with inferior/posterior wall motion abnormality 4. Dyslipidemia Chest pain-free. Moderate troponin elevation peaking. LV function preserved on echocardiogram Minimal ventricular ectopy on telemetry Borderline blood pressure after started on metoprolol, lisinopril No apparent access site complications Post procedure renal function stable Continue DAPT with aspirin, ticagrelor Reduce metoprolol to 12.5 twice dailyhome on Toprol-XL 25 Continue lisinopril 5 Continue high intensity statin From a cardiac standpoint okay with transfer to telemetry today and likely home tomorrow. Admission and Anticipated Discharge Date Admission Date: December 26, 2019 Subjective Feeling well today. No chest pain. Minimal dizziness with standing up to go the bathroom. Borderline blood pressures down to the 80s. Heart rates 50s to 60s Telemetrybrief episodes of nonsustained VT, max 9 beats Review of Systems Review of Systems: All systems reviewed & are unremarkable except as noted in HPI & below Physical Exam Physical Exam: General: Comfortable, no acute distress HEENT: Sclerae anicteric, mucous membranes moist Lungs: Clear to auscultation bilaterally, no rhonchi or wheezes Cardiac: Regular rate and rhythm, no murmurs. No JVD. Abdomen: Soft, nontender, nondistended, positive bowel sounds. Extremities: Warm, well perfused, no edema. Right radial artery access site with no ecchymosis, no hematoma. Distal pulse and sensation intact. Skin: No rashes or lesions. Neuro: Nonfocal Psych: Alert orient x3, normal affect and mood Results & Data ([facility]) Vital Signs (Past 12 Hours) Vital Signs Temp Pulse Pulse Resp BP BP Pulse Ox 12/26/19 13:02 55 L 19 101/56 L 97 12/26/19 12:54 58 L 22 87/58 L 96 12/26/19 12:42 60 23 85/52 L 96 12/26/19 11:41 98.2 F 67 19 89/56 L 95 12/26/19 10:56 65 14 117/67 97 12/26/19 09:56 65 16 106/61 97 12/26/19 09:12 72 18 123/76 99 12/26/19 08:00 63 12/26/19 07:56 98.2 F 64 19 121/60 98 12/26/19 03:54 97.5 F L 69 19 120/80 98 12/26/19 03:30 79 16 99 12/26/19 03:25 72 16 116/73 98 12/26/19 03:15 75 16 98 12/26/19 03:10 77 14 111/71 96 12/26/19 03:00 82 17 98 12/26/19 02:55 83 18 117/72 96 12/26/19 02:51 97.7 F 83 16 134/83 98 12/26/19 02:45 85 19 96 12/26/19 02:39 84 18 97 12/26/19 02:33 85 20 134/83 95 12/26/19 02:32 86 12/26/19 02:18 116 H 143/85 H PG Care Time/CCT Total # of Minutes Spent Total Time Spent with Patient: Total time spent is greater than 50% in coordination of care (as documented) at patient's floor/unit and/or counseling patient: Coding Level of Care Code 24329 Subseq Hosp Care Lvl 3 Diagnoses STEMI (ST elevation myocardial infarction) I21.3
--- NOTE | 2019-12-26 16:13 | Electrocardiogram Report ---
Test Reason : Blood Pressure : / mmHG Vent. Rate : 060 BPM Atrial Rate : 060 BPM P-R Int : 168 ms QRS Dur : 080 ms QT Int : 424 ms P-R-T Axes : 072 046 096 degrees QTc Int : 424 ms Normal sinus rhythm with sinus arrhythmia ST elevation consider inferior injury or acute infarct Acute Inferior infarct Consider right ventricular involvement in acute inferior infarct Abnormal ECG No previous ECGs available Confirmed by Mario Lopez ([id number]) on 12/26/2019 4:13:34 PM Referred By: REFERRED SELF Confirmed By:Mario Lopez
--- NOTE | 2019-12-26 16:13 | Electrocardiogram Report ---
Test Reason : Blood Pressure : / mmHG Vent. Rate : 061 BPM Atrial Rate : 061 BPM P-R Int : 174 ms QRS Dur : 080 ms QT Int : 420 ms P-R-T Axes : 070 042 098 degrees QTc Int : 422 ms Normal sinus rhythm with sinus arrhythmia ST elevation consider inferior injury or acute infarct Acute Inferior infarct Consider right ventricular involvement in acute inferior infarct Abnormal ECG When compared with ECG of 26-DEC-2019 00:23, No significant change was found Confirmed by Mario Lopez ([id number]) on 12/26/2019 4:13:52 PM Referred By: REFERRED SELF Confirmed By:Mario Lopez
--- NOTE | 2019-12-26 16:16 | Electrocardiogram Report ---
Test Reason : Blood Pressure : / mmHG Vent. Rate : 061 BPM Atrial Rate : 061 BPM P-R Int : 174 ms QRS Dur : 082 ms QT Int : 376 ms P-R-T Axes : 075 048 095 degrees QTc Int : 378 ms Normal sinus rhythm (Presumed right sided leads) Minimal evidence of RV infarct (minor ST elevation V5-6) Low voltage QRS Abnormal ECG When compared with ECG of 26-DEC-2019 00:25, No significant change in comparable leads Confirmed by Mario Lopez ([id number]) on 12/26/2019 4:15:55 PM Referred By: REFERRED SELF Confirmed By:Mario Lopez
[2019-12-26] MEDS ORDERED: SIMETHICONE 80 MG CHEW PO ONE (19:00)
[2019-12-26] MEDS: TICAGRELOR 90 MG TAB PO SCH (20:34)
[2019-12-26] MEDS: HEPARIN SOD 5,000 UNIT/0.5 ML VIAL SQ SCH (20:34)
[2019-12-27 05:21] LABS: Basophils # (auto) 0.07 K/uL (0-0.2); Basophils % (auto) 0.7 %; Eosinophils # (auto) 0.48 K/uL (0-0.5); Eosinophils % (auto) 4.8 %; Hematocrit (blood only) 37.8 % (37-47); Hemoglobin 12.7 g/dL (12.0-16.0); Immature Granulocytes # (auto) 0.01 K/uL (0.00-0.02); Immature Granulocytes % (auto) 0.1 %; Lymphocytes # (auto) 2.36 K/uL (1.2-3.4); Lymphocytes % (auto) 23.7 %; Mean Corpuscular Hgb Conc 33.6 g/dL (32-36); Mean Corpuscular Volume 89.4 fL (80-100); Mean Platelet Volume 11.1 fL (7.4-10.4); Monocytes # (auto) 0.95 K/uL (0.11-0.59); Monocytes % (auto) 9.5 %; Neutrophils # (auto) 6.08 K/uL (1.4-6.5); Neutrophils % (auto) 61.2 %; Platelet Count 230 K/uL (130-400); RDW Coefficient of Variation 13.2 % (11.5-14.5); RDW Standard Deviation 43.3 fL (36.4-46.3); Red Blood Count 4.23 M/uL (4.2-5.4); White Blood Count 9.95 K/uL (4.8-10.8)
[2019-12-27 05:48] LABS: BUN Creatinine Ratio 23.1 (10-20); Calcium 8.8 mg/dl (8.5-10.1); Creatinine Clr Calc Pharmacy 52.8 ml/min; Est GFR (African American) 98.7; Est GFR (Non-African American) 85.2; Potassium 3.8 mmol/L (3.5-5.1)
[2019-12-27] MEDS: ASPIRIN 81 MG ECTAB PO SCH (08:31)
[2019-12-27] MEDS: HEPARIN SOD 5,000 UNIT/0.5 ML VIAL SQ SCH ×2 (08:31→21:56)
[2019-12-27] MEDS: ATORVASTATIN 40 MG TAB PO SCH (08:31)
[2019-12-27] MEDS: TICAGRELOR 90 MG TAB PO SCH ×2 (08:31→21:45)
[2019-12-27] MEDS: lisinopriL 5 MG TAB PO SCH (08:32)
[2019-12-27] MEDS ORDERED: METOPROLOL SUCC 25MG EXT REL TAB PO SCH (09:00)
--- NOTE | 2019-12-27 11:56 | Hospitalist Progress Note ---
Date of Service December 27, 2019 Assessment & Plan (1) STEMI (ST elevation myocardial infarction): 74 year old woman with hyperlipidemia otherwise healthy here for STEMI now s/p LISET x2 STEMI: - RAD 100% occluded s/p cath revascularization and LSIET x2 - 1 year of dual antiplatelet with asa and ticagrelor - Started on statin, lisinopril and metoprolol, can up titrate as tolerated - Troponins most recently 18, up from 14.4 @ 6:45 - Echo w/ preserved LV function w/ wall motion abnormality - cardiac rehab on discharge Multivessel disease: - up to 50% prox-mid LAD - medical management as above HLD: - total cholesterol 234, LDL 169, HDL 45 - continue Atorvastatin 80 mg Prediabetic: - HA1c 5.7 - continue to monitor and follow up outpatient Diet: Heart healthy DVT PPx: SubQ Heparin Code: DNR/DNI Admission and Anticipated Discharge Date Admission Date: December 26, 2019 Supervising Physician Co-Signing Physician Notes Resident Physician Supervision Note: I independently interviewed and examined the patient and verified the bernstein history and physical, reviewed labs and image studies, discussed the case with the resident Dr. Thomas and agree with the findings and care plan. Subjective Continues to feel well following stent placement, has not had chest pain/discomfort, shortness of breath, headaches, or dyspnea on exertion. Feels that she is slightly less steady on her feet than prior, and is wanting to stay to feel more comfortable on her feet before going back to her apartment and having to deal with stairs. Review of Systems Review of Systems: All systems reviewed & are unremarkable except as noted in Subjective Physical Exam Constitutional: WD/WN, vitals as above Eyes: PERRL, conjunctivae normal, anicteric sclerae Respiratory: normal respiratory effort; no respiratory distress and no labored breathing Auscultation: + crackles (RLL); no rhonchi and no wheezes Cardiovascular: Rate/Rhythm: regular rate and regular rhythm Heart Sounds: normal S1 and normal S2; no gallop, no murmur and no cardiac rub Vessels: no JVD Extremities: no pedal edema Gastrointestinal (Abdomen): normal bowel sounds, soft, nontender, no hepatosplenomegaly Skin: no rashes, warm and dry Neurologic: patellar DTR's 2+ bilat, sensation intact Psychiatric: A+Ox3, euthymic affect Results & Data Results & Data ([facility]) Vital Signs (Past 12 Hours) Vital Signs Temp Pulse Pulse Resp BP BP Pulse Ox 12/27/19 07:41 36.8 C 83 18 121/62 99 12/27/19 06:28 72 12/27/19 06:26 37.0 C 62 18 117/74 96 12/27/19 02:00 70 19 97 12/27/19 01:22 70 14 101/65 97 12/27/19 01:00 77 23 96 12/27/19 00:22 71 13 93/56 L 97 12/27/19 00:00 36.7 C 63 15 97 Resident Activity Tracking Resident Involvement: Resident Care Provided Care Provided: Adult Hospital Medicine
--- NOTE | 2019-12-27 17:04 | Cardiology Progress Note ---
Date of Service December 27, 2019 Assessment & Plan (1) STEMI (ST elevation myocardial infarction): --Post primary PCI with 2 LISET to RCA 2. Multivessel non-culprit coronary artery disease Moderate circumflex/proximal disease with 90% focal stenosis in proximal D1 3. Preserved LV function with inferior/posterior wall motion abnormality 4. Dyslipidemia Chest pain-free. Troponin peaked. LV function preserved on echocardiogram Hemodynamically electrically stable Continue DAPT with aspirin, ticagrelor Continue Toprol-XL 25, lisinopril 5 and high intensity statin From a cardiac standpoint okay with discharge tomorrow. Follow-up with me in 2 weeks Admission and Anticipated Discharge Date Admission Date: December 26, 2019 Subjective Feels tired but no chest pain or new shortness of breath. Telemetry reviewedno events Review of Systems Review of Systems: All systems reviewed & are unremarkable except as noted in HPI & below Physical Exam Physical Exam: General: Comfortable, no acute distress HEENT: Sclerae anicteric, mucous membranes moist Lungs: Clear to auscultation bilaterally, no rhonchi or wheezes Cardiac: Regular rate and rhythm, no murmurs. No JVD. Abdomen: Soft, nontender, nondistended, positive bowel sounds. Extremities: Warm, well perfused, no edema. Right radial artery access site with minimal ecchymosis, no hematoma. Distal pulse and sensation intact. Skin: No rashes or lesions. Neuro: Nonfocal Psych: Alert orient x3, normal affect and mood Results & Data ([facility]) Vital Signs (Past 12 Hours) Vital Signs Temp Pulse Pulse Pulse Resp BP Pulse Ox 12/27/19 15:17 98.2 F 61 18 103/67 96 12/27/19 12:00 98.2 F 72 18 112/74 95 12/27/19 07:41 98.2 F 83 18 121/62 99 12/27/19 06:28 72 12/27/19 06:26 98.6 F 62 18 117/74 96 PG Care Time/CCT Total # of Minutes Spent Total Time Spent with Patient: Total time spent is greater than 50% in coordination of care (as documented) at patient's floor/unit and/or counseling patient: Coding Level of Care Code 93434 Subseq Hosp Care Lvl 2 Diagnoses STEMI (ST elevation myocardial infarction) I21.3
--- NOTE | 2019-12-27 21:23 | Billing Data ---
Date of Service December 27, 2019 Coding Level of Care Code Critical Care 1st - mins
[2019-12-28 07:41] VITALS: BP 98/59; TEMP 98.1; O2SAT 97
[2019-12-28] MEDS: TICAGRELOR 90 MG TAB PO SCH (08:29)
[2019-12-28] MEDS: lisinopriL 5 MG TAB PO SCH (08:29)
[2019-12-28] MEDS: ASPIRIN 81 MG ECTAB PO SCH (08:29)
[2019-12-28] MEDS: HEPARIN SOD 5,000 UNIT/0.5 ML VIAL SQ SCH (08:30)
[2019-12-28] MEDS: ATORVASTATIN 40 MG TAB PO SCH (08:30)
[2019-12-28] MEDS ORDERED: METOPROLOL SUCC 25MG EXT REL TAB PO SCH (09:00)
[2019-12-28 09:14] VITALS: PULSE 83
--- NOTE | 2019-12-28 09:22 | Discharge Summary ---
Date of Service December 28, 2019 Admission HPI Per Admitting Provider Amisha Amaral is a 74 year old woman with a past medical history significant only for hyperlipidemia on no home medications who presents today after several days of right arm pain and progressive dyspnea and a few hours of acute epigastric pain, diaphoresis and nausea. Patient was bitten by a yellow jacket 2-3 days ago and has continuing right arm pain and has had shortness of breath which has been progressive since before then climbing the eighteen steps in her new apartment. Several weeks ago it felt good to walk those eighteen steps now she gets short of breath and winded easily with this exertion and also has dizziness. She has not noted any chest pain with exertion. Patient's mother had a major heart attack in her 50's , she is a former smoker in her teenage years but cannot recall how long ago or for how long she smoked "very briefly", has a history of HLD, no history of hypertension, DM, or other atherosclerotic disease. On presentation to the emergency department patient was found to be hypertensive but otherwise vital signs were within normal limits, EKG was obtained showing ST elevations in inferior leads and ST depressions in V1-V3. Patient's labwork was significant for an elevation in her troponin to .364. Heart alert was called and patient was taken emergently to the laborer heading. In laborer heading patient was found to have 100 percent occlusion of the RCA artery and nonocclusive non culprit plaque formation in several other vessels including -Up to 50% diffuse proximal to mid LAD diseaseFirst diagonal with 90% focal proximal [id number]% ostial circumflex, 40% mid segment disease extending into OM1. RCA stented x2 LISET and patient was admitted to ICU. Patient is sleeping comfortably now, no complaints at this time. Principal Diagnosis STEMI Discharge Exam Constitutional WD/WN, vitals as above Eyes PERRL, conjunctivae normal, anicteric sclerae Respiratory normal respiratory effort; no respiratory distress and no labored breathing Auscultation: + crackles (RLL); no rhonchi and no wheezes Cardiovascular Rate/Rhythm: regular rate and regular rhythm Heart Sounds: normal S1 and normal S2; no gallop, no murmur and no cardiac rub Vessels: no JVD Extremities: no pedal edema Gastrointestinal (Abdomen) normal bowel sounds, soft, nontender, no hepatosplenomegaly Skin no rashes, warm and dry Neurologic patellar DTR's 2+ bilat, sensation intact Psychiatric A+Ox3, euthymic affect Discharge Data Allergies Allergy/AdvReac Type Severity Reaction Status Date / Time No Known Allergies Allergy Unknown ` Verified 12/26/19 00:47 Consultations 12/26/19 01:06 ED Decision to Admit Stat 12/26/19 02:12 Consult Table Games Dealer Routine 12/26/19 02:32 Consult Cardiac Rehabilitation Routine Consult Case Management - Discharge Planning Routine Procedures Performed Operation Date: 12/26/19 01:15 Actual Procedures s Cineradiography w/Routine Exam - Tyrel Segura MD p Aspiration/PCI w/LISET for Stemi - Tyrel Segura MD s Cath, Left with Cors and Vent - Tyrel Segura MD Ordered Studies 12/26/19 01:10 CL Cath Imgs for PACS use only Stat Hospital Course (1) STEMI (ST elevation myocardial infarction): 74 year old woman with hyperlipidemia otherwise healthy here for STEMI now s/p LISET x2 STEMI: - RAD 100% occluded s/p cath revascularization and LISET x2 - 1 year of dual antiplatelet with asa and ticagrelor - continue atorvastatin 80mg - continue lisinopril 5mg - continue Metoprolol 12.5mg - continue Brilinta 90mg BID - Echo w/ preserved LV function w/ wall motion abnormality - cardiac rehab on discharge - follow-up with Cardiology in two weeks Multivessel disease: - up to 50% prox-mid LAD HLD: - total cholesterol 234, LDL 169, HDL 45 - continue Atorvastatin 80 mg Prediabetic: - HA1c 5.7 Total Time Total Time Spent Total Time Spent (In Minutes): 30 Discharge Plan Discharge Items Patient Disposition: Home - Self-Care Reason For Visit: STEMI Discharge Diagnosis: STEMI Activity: Per Instructions section Non-emergency contact: Primary Care Provider and Sampler [employer]vens Call non-emergency contact if: you have any medication questions, your symptoms worsen and your pain is worsening Follow-up/Referrals: Charis Ward CRNP [Primary Care Provider] - Diet: Heart Healthy Addtl Attending Provider Instructions: You were seen and admitted following several days of right arm pain and shortness of breath. During this admission, it was uncovered that you had changes to the blood vessels that supplied blood to your heart and this was determined to be the cause of your symptoms and was causing damage to your heart. As a result of this you had two stents placed in one of the vessels of your heart. Now that you are being discharged you are being started on several new medications that you should continue to take going forward. These are the Lisinopril 5mg once a day, Atorvastatin 40mg once a day, Metoprolol 12.5mg once a day, Aspirin 81mg once a day, and Brillinta 90mg twice a day. It is important that you continue to take these medications every day going forward until your brick siding applicator instructs you otherwise. In the next two weeks, you will have follow-up in the Cardiology office with Dr. Segura to continue to ensure that you are doing well. Pending Studies at Discharge: No Stand-Alone Forms: My [facility], Smoking Cessation Medications and DC Order Prescriptions: New atorvastatin 40 mg Tablet 80 mg PO QAM 30 Days Qty: 60 RF: 0 aspirin 81 mg Tablet,Delayed Release (Dr/Ec) 81 mg PO QAM 30 Days Qty: 30 RF: 0 lisinopril [Zestril] 5 mg Tablet 5 mg PO QAM 30 Days Qty: 30 RF: 0 Brilinta 90 mg Tablet 90 mg PO BID 30 Days Qty: 60 RF: 0 metoprolol succinate 25 mg tablet extended release 24 hr 12.5 mg PO DAILY 30 Days Qty: 15 RF: 0 No Action No Known Home Medications RF: 0 Discharge Orders: Discharge Order (Routine); Ordered 12/28/19 Ordered By: Florentin Bales/Other Patient Handouts: Symptoms of a Heart Attack Admission Data Admit Date/Time: 12/26/19 02:12 Attending Provider: Rachel Green Admit Provider: Tyrel Segura Primary Care Provider: Charis Ward Other Providers: Cj Ramirez Gregory Other Interventions: Discharge Summary Assessment (RN) Last Done: 12/28/19 09:07 DC Date/Time DO NOT enter until pt leaves facility: 12/28/19 09:50 Supervising Physician Co-Signing Physician Notes Resident Physician Supervision Note: I independently interviewed and examined the patient and verified the bernstein history and physical, reviewed labs and image studies, discussed the case with the resident Dr. Thomas and agree with the findings and care plan. Resident Activity Tracking Resident Involvement: Resident Care Provided Care Provided: Adult Hospital Medicine
[2019-12-28 10:55] LABS: Basophils # (auto) 0.09 K/uL (0-0.2); Basophils % (auto) 0.8 %; Eosinophils # (auto) 0.81 K/uL (0-0.5); Eosinophils % (auto) 7.6 %; Hematocrit (blood only) 38.6 % (37-47); Hemoglobin 12.8 g/dL (12.0-16.0); Immature Granulocytes # (auto) 0.03 K/uL (0.00-0.02); Immature Granulocytes % (auto) 0.3 %; Lymphocytes # (auto) 2.46 K/uL (1.2-3.4); Mean Corpuscular Hemoglobin 30.2 pg (25-34); Mean Corpuscular Hgb Conc 33.2 g/dL (32-36); Mean Platelet Volume 11.1 fL (7.4-10.4); Monocytes # (auto) 1.11 K/uL (0.11-0.59); Monocytes % (auto) 10.4 %; Neutrophils # (auto) 6.18 K/uL (1.4-6.5); Neutrophils % (auto) 57.9 %; Platelet Count 246 K/uL (130-400); RDW Coefficient of Variation 13.3 % (11.5-14.5); RDW Standard Deviation 44.2 fL (36.4-46.3); Red Blood Count 4.24 M/uL (4.2-5.4); White Blood Count 10.68 K/uL (4.8-10.8)
== END 2019-12-28 09:50 | disposition home or self-care (01) | DRG 247 ==
LOC: ED 00:12 → CC 01:22 → 1E 02:12 → SUATTDRO 02:12 → 1E 21:18 → 2S 12-27 06:18

== ENCOUNTER 2021-11-09 11:44 | Inpatient (IN) ==
[2021-11-09 12:28] LABS: Basophils # (auto) 0.08 K/uL (0-0.2); Basophils % (auto) 0.8 %; Eosinophils # (auto) 0.47 K/uL (0-0.5); Eosinophils % (auto) 4.5 %; Hemoglobin 13.8 g/dL (12.0-16.0); Immature Granulocytes # (auto) 0.03 K/uL (0.00-0.02); Immature Granulocytes % (auto) 0.3 %; Lymphocytes # (auto) 2.35 K/uL (1.2-3.4); Lymphocytes % (auto) 22.3 %; Mean Corpuscular Hemoglobin 31.7 pg (25-34); Mean Corpuscular Hgb Conc 35.4 g/dL (32-36); Mean Corpuscular Volume 89.4 fL (80-100); Mean Platelet Volume 12.1 fL (7.4-10.4); Monocytes # (auto) 0.51 K/uL (0.11-0.59); Monocytes % (auto) 4.8 %; Neutrophils # (auto) 7.08 K/uL (1.4-6.5); Neutrophils % (auto) 67.3 %; Platelet Count 334 K/uL (130-400); RDW Standard Deviation 52.6 fL (36.4-46.3); Red Blood Count 4.36 M/uL (4.2-5.4); White Blood Count 10.52 K/uL (4.8-10.8)
[2021-11-09 12:51] LABS: Albumin Globulin Ratio 1.3 (0.9-2); Albumin Level 4.2 gm/dl (3.4-5.0); BUN Creatinine Ratio 21.9 (10-20); Bilirubin,Total 12.4 mg/dl (0.2-1.0); Calcium 9.8 mg/dl (8.5-10.1); Est GFR (African American) 92.1 ml/min; Est GFR (Non-African American) 79.4 ml/min; Globulin 3.2 gm/dl (2.5-4.0); Potassium 3.6 mmol/L (3.5-5.1); Total Protein 7.4 gm/dl (6.0-8.3)
[2021-11-09] MEDS ORDERED: SODIUM CHLORIDE 0.9% 1000ML 1,000 ML IV ONE (13:50)
[2021-11-09] MEDS ORDERED: OPTIRAY 320 100ml IV ONE (14:26)
--- NOTE | 2021-11-09 15:18 | CT Scan Report ---
CT OF THE ABDOMEN AND PELVIS WITH CONTRAST CLINICAL HISTORY: Painless jaundice. COMPARISON STUDY: None. TECHNIQUE: Following IV administration of 93 mL of Optiray, axial images of the abdomen and pelvis we re obtained from the lung bases to the proximal femurs. Images were reviewed in the axial, sagittal, and coronal planes. IV contrast was administered without complication. Automated exposure control wa s utilized for the study. A dose lowering technique was utilized adhering to the principles of ALARA . CT DOSE: 255.05 mGy.cm FINDINGS: Lung bases are unremarkable. No pneumatosis, free air or portal venous gas is present. Note is made of moderate to marked biliary and pancreatic ductal dilatation. Common bile duct measures 1. 9 cm in caliber. Main pancreatic duct measures 1.1 cm in caliber. There is pancreatic glandular atrop hy. Caliber change of the pancreatic duct within the region of the pancreatic head on axial image 158 is noted. Although not well delineated, the findings are suspicious for an underlying pancreatic or ampullary mass. No lymphadenopathy is present. Gallbladder is mildly distended. There is layering mat erial within the gallbladder. This may reflect sludge. No suspicious hepatic lesions are present. 5.3 cm lateral segment cyst is present. A 1.4 cm left adrenal nodule is noted. Right adrenal gland and s pleen are unremarkable. Right kidney is normal. A few suspected cysts within the upper pole of the le ft kidney are present. Note is made of a prominent left para-aortic lymph node on axial image 139 of 416 and measures 1.2 x 0.8 cm. This is just below the level of the left renal artery. No pathological ly enlarged lymph nodes are present. There is no evidence for a bowel obstruction. Caliber and wall t hickness of small and large bowel are normal. The appendix is normal. No acute fracture or suspicious lesion within the visualized skeletal structures is present. There is moderate aortoiliac atheroscle rotic plaque. IMPRESSION: 1. Moderate to marked biliary and pancreatic ductal dilatation with ductal caliber change at the leve l of the pancreatic head. 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 An obstructing calculus i s also within the differential but considered less likely. GI consultation for consideration for ERCP is recommended. 2. Prominent left para-aortic lymph node and a 1.4 cm left adrenal nodule. These are indeterminate an d should be assessed on follow-up exams to ensure stability. 3. No suspicious hepatic lesions. ACT 112: Positive. There are findings on this exam that require communication between the performing entity and the patient following Patient Test Result Information Act ([place] Act 112) guidelines. Electronically signed by: Heriberto Edwards M.D. 11/09/2021 3:16 PM
--- NOTE | 2021-11-09 16:06 | Electrocardiogram Report ---
Test Reason : Blood Pressure : / mmHG Vent. Rate : 082 BPM Atrial Rate : 082 BPM P-R Int : 168 ms QRS Dur : 080 ms QT Int : 364 ms P-R-T Axes : 074 076 060 degrees QTc Int : 425 ms Normal sinus rhythm Normal ECG When compared with ECG of 26-DEC-2019 02:43, ST no longer depressed in Anterior leads T wave inversion no longer evident in Inferior leads Nonspecific T wave abnormality no longer evident in Lateral leads Confirmed by Efraín Samuels ([id number]) on 11/09/2021 4:06:20 PM Referred By: Confirmed By:Jesse Samuels
[2021-11-09 16:11] LABS: Appearance Urine Clear (Clear); Bacteria Urine Automated 1+ (Negative); Blood Urine 1+ (Negative); Color Urine Dark Yellow; Epithelial Cell Urine Auto >30 /lpf (0-5); Glucose Urine UA Negative (Negative); Ketones Urine Negative (Negative); Leukocyte Esterase Urine 2+ (Negative); Nitrite Urine Negative (Negative); Protein Urine Negative (Negative); Specific Gravity Urine 1.041 (1.000-1.030); Urobilinogen Urine Negative (Negative); WBC Urine Automated >30 /hpf (0-5); pH Urine 6.5 (4.5-7.5)
[2021-11-09 16:12] LABS: Bilirubin Urine 2+ (Negative)
[2021-11-09 16:24] LABS: INR 1.1 (0.9-1.1); Prothrombin Time 11.9 Seconds (9.0-12.0)
--- NOTE | 2021-11-09 21:36 | History & Physical Report ---
Date of Service November 09, 2021 Assessment & Plan (1) Painless jaundice: Plan: Abdominal pain 2 weeks ago but non currently. No infections signs or symptoms to suggest need for antibiotics currently Discussed concern for pancreatic mass with the patient and friend at bedside NPO after midnight for ERCP tomorrow. LR @ 80ml/hr. Consult gastroenterology (2) CAD (coronary artery disease): Plan: STEMI in 2019 with LISET x2 to RCA. Hold aspirin pending ERCP - can likely start following this. Plan: VTE Prophylaxis - deferred on admission pending decision regarding MRCP Diet - clear liquids, NPO after midnight Disposition - admit to med/surg Admission and Anticipated Discharge Date Admission Date: November 09, 2021 History of Present Illness Chief Complaint: Jaundice Primary Care Provider: MELY Cary Amisha Amaral is a 76 year old female who presents to the ER with increased yellowing of the skin for the last 2 weeks. She reports 2 weeks ago having some abdominal pain but not since then. She denies any chest pain, shortness of breath, fever, chills, diarrhea, constipation, nausea or vomiting. She was advised by a friend to come to the ER due to progressive yellowing of her skin. In the ER total bilirubin 12.4, direct 6.2, AST 148, ALT 217, ALP 738. CT abdomen/pelvis concerning for moderated to marked biliary and pancreatic ductal dilatation with ductal caliber change at the level of the pancreatic head. She was referred to medicine for admission and ongoing management of painless ja undice and possible pancreatic mass. Allergies Allergy/AdvReac Type Severity Reaction Status Date / Time grass pollen Allergy Swelling Unverified 11/09/21 16:04 of the Eye Home Medications Medication Instructions Recorded Confirmed Type aspirin 81 mg tablet,delayed 81 mg PO DAILY 04/15/20 11/09/21 History release (Adult Low Dose Aspirin) acetaminophen 325 mg tablet 325 mg PO QID PRN 11/09/21 11/09/21 History Past Med/Surg History Medical History Fatigue Surgical History H/O total hysterectomy with bilateral salpingo-oophorectomy (BSO) Family History Father Myocardial infarction Denies family history of Ovarian cancer Prostate cancer Coronary heart disease Breast cancer Lung cancer Social History Smoking Status: Former smoker Second Hand Exposure: No; Do You Dip or Chew Tobacco: No; Hx Alcohol Use: No Hx Substance Use: No Preferred Language: Cape Verdean Communication Ability: Effective Visual Impairment: No Limitations Hearing Ability: Normal Strain Technician Required: No Beliefs That Will Affect Care: None marital status: / Current Living Situation: Alone current occupational status: retired Other Information That Helps Us Care for You: No Feels Safe at Home: Yes Safety Concerns: Feels Safe At This Time Childhood Exposure to Second-Hand Smoke: Yes Dental Care, Regularly: No Physical Activity Frequency: Daily Physical Activity Frequency Comment: 10 minutes; walk Seatbelt Use: always Sunscreen Use: No Assistive Devices: Denture - Upper, Denture - Lower and Glasses Assistive Devices Comment: reading glasses Review of Systems Review of Systems: All systems reviewed & are unremarkable except as noted in HPI & below Physical Exam Constitutional: well developed and + frail appearing; + not well nourished and no acute distress Eyes: + abnormal pupil size; sclerae not anicteric ENMT: external ear and nose normal, oropharynx normal Respiratory: normal respiratory effort, lungs clear to auscultation Cardiovascular: RRR, no murmur, no edema Gastrointestinal (Abdomen): Inspection/Auscultation: normal bowel sounds Percussion/Palpation: abdomen soft; abdomen nontender, no guarding, abdomen not rigid and no hepatosplenomegaly Musculoskeletal: no cyanosis or clubbing, extremities motor strength 5/5 Skin: + jaundice Neurologic: moves all extremities and awake; no focal motor deficits and not confused Psychiatric: A+Ox3, euthymic affect Results & Data Results & Data ([facility]) Vital Signs (Past 12 Hours) Vital Signs Temp Pulse Resp BP Pulse Ox 11/09/21 20:00 79 18 153/106 H 97 11/09/21 19:30 72 19 162/90 H 96 11/09/21 19:00 71 19 158/99 H 97 11/09/21 18:30 76 21 141/102 H 11/09/21 18:01 71 21 114/81 11/09/21 18:00 76 22 05/18/22 17:31 78 27 H 11/09/21 17:30 77 20 11/09/21 17:23 79 25 H 126/99 11/09/21 17:00 80 17 128/74 97 11/09/21 16:30 73 16 124/77 97 11/09/21 16:00 69 19 153/79 H 97 11/09/21 15:30 67 20 98 11/09/21 15:00 71 24 134/81 98 11/09/21 14:38 72 21 152/79 H 97 11/09/21 14:32 82 18 11/09/21 14:00 75 21 129/98 98 11/09/21 13:30 71 22 122/74 98 11/09/21 13:17 77 24 95 11/09/21 11:46 36.7 C 100 H 18 116/72 99 Laboratory Results Abnormal lab results 11/09/21 11/09/21 11/09/21 Range/Units 12:14 12:14 14:06 RDW Std Deviation 52.6 H (36.4-46.3) fL RDW Coeff of Artie 16.0 H (11.5-14.5) % MPV 12.1 H (7.4-10.4) fL Neut # (Auto) 7.08 H (1.4-6.5) K/uL Immature Gran # (Auto) 0.03 H (0.00-0.02) K/uL BUN/Creatinine Ratio 21.9 H (10-20) Glucose 137 H (70-99(Fasting)) mg/dl Total Bilirubin 12.4 H (0.2-1.0) mg/dl Direct Bilirubin 6.2 H (0-0.2) mg/dl AST 148 H (13-39) U/L ALT 217 H (7-52) U/L Alkaline Phosphatase 738 H (34-104) U/L Ur Specific [place] (1.000-1.030) Urine Blood (Negative) Urine Bilirubin (Negative) Ur Leukocyte Esterase (Negative) Urine WBC (Auto) (0-5) /hpf Urine RBC (Auto) (0-4) /hpf U Epithel Cells (Auto) (0-5) /lpf Urine Bacteria (Auto) (Negative) 11/09/21 Range/Units 15:45 RDW Std Deviation (36.4-46.3) fL RDW Coeff of Artie (11.5-14.5) % MPV (7.4-10.4) fL Neut # (Auto) (1.4-6.5) K/uL Immature Gran # (Auto) (0.00-0.02) K/uL BUN/Creatinine Ratio (10-20) Glucose (70-99(Fasting)) mg/dl Total Bilirubin (0.2-1.0) mg/dl Direct Bilirubin (0-0.2) mg/dl AST (13-39) U/L ALT (7-52) U/L Alkaline Phosphatase (34-104) U/L Ur Specific [place] 1.041 H (1.000-1.030) Urine Blood 1+ H (Negative) Urine Bilirubin 2+ H (Negative) Ur Leukocyte Esterase 2+ H (Negative) Urine WBC (Auto) >30 H (0-5) /hpf Urine RBC (Auto) 10-30 H (0-4) /hpf U Epithel Cells (Auto) >30 H (0-5) /lpf Urine Bacteria (Auto) 1+ H (Negative) Diagnostic Findings CT OF THE ABDOMEN AND PELVIS WITH CONTRAST CLINICAL HISTORY: Painless jaundice. COMPARISON STUDY: None. TECHNIQUE: Following IV administration of 93 mL of Optiray, axial images of the abdomen and pelvis were obtained from the lung bases to the proximal femurs. Images were reviewed in the axial, sagittal, and coronal planes. IV contrast was administered without complication. Automated exposure control was utilized for the study. A dose lowering technique was utilized adhering to the principles of ALARA. CT DOSE: 255.05 mGy.cm FINDINGS: Lung bases are unremarkable. No pneumatosis, free air or portal venous gas is present. Note is made of moderate to marked biliary and pancreatic ductal dilatation. Common bile duct measures 1.9 cm in caliber. Main pancreatic duct measures 1.1 cm in caliber. There is pancreatic glandular atrophy. Caliber change of the pancreatic duct within the region of the pancreatic head on axial image 158 is noted. Although not well delineated, the findings are suspicious for an underlying pancreatic or ampullary mass. No lymphadenopathy is present. Gallbladder is mildly distended. There is layering material within the gallbladder. This may reflect sludge. No suspicious hepatic lesions are present. 5.3 cm lateral segment cyst is present. A 1.4 cm left adrenal nodule is noted. Right adrenal gland and spleen are unremarkable. Right kidney is normal. A few suspected cysts within the upper pole of the left kidney are present. Note is made of a prominent left para-aortic lymph node on axial image 139 of 416 and measures 1.2 x 0.8 cm. This is just below the level of the left renal artery. No pathologically enlarged lymph nodes are present. There is no evidence for a bowel obstruction. Caliber and wall thickness of small and large bowel are normal. The appendix is normal. No acute fracture or suspicious lesion within the visualized skeletal structures is present. There is moderate aortoiliac atherosclerotic plaque. IMPRESSION: 1. Moderate to marked biliary and pancreatic ductal dilatation with ductal caliber change at the level of the pancreatic head. 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 An obstructing calculus is also within the differential but considered less likely. GI consultation for consideration for ERCP is recommended. 2. Prominent left para-aortic lymph node and a 1.4 cm left adrenal nodule. These are indeterminate and should be assessed on follow-up exams to ensure stability. 3. No suspicious hepatic lesions. Medications Administered ER Medications Given: NSS 1L bolus ECG Rate (beats per minute): 82 Rhythm: normal sinus Findings: no acute ischemic change Comparison ECG Date: from (December 26, 2019) Code Status & VTE Plan Code Status Full VTE Prophylaxis Plan VTE Prophylaxis will be ordered: Yes PG Care Time/CCT Total # of Minutes Spent Total Time Spent with Patient: Total time spent is greater than 50% in coordination of care (as documented) at patient's floor/unit and/or counseling patient: Coding Level of Care Code 96100 Initial Inpt Care Lvl 2 Diagnoses Painless jaundice R17 CAD (coronary artery disease) I25.10
[2021-11-09] MEDS ORDERED: ACETAMINOPHEN 325 MG TAB PO PRN (21:37)
[2021-11-09] MEDS: LACTATED RINGER'S 1,000 ML IV SCH (22:17)
[2021-11-10] MEDS ORDERED: KETOROLAC TROMETHAMINE 15 MG/ML VIAL IV ONE (01:31)
[2021-11-10] MEDS ORDERED: ONDANSETRON INJ 2 MG/ML 2 ML VIAL IV PRN ×2 (01:31→13:01)
--- NOTE | 2021-11-10 01:33 | Emergency Department Note ---
Impression & Plan Painless jaundice, Common bile duct (CBD) obstruction, Hyperbilirubinemia ED Provider Note NAME: GIRMA ALEGRE AGE: 76 SEX: F ARRIVES VIA: Walk-In INFORMANT: Patient ED PROVIDER(S): Preet Soriano MD CHIEF COMPLAINT: Weakness, bodyaches, nausea, diarrhea. PLAN: Disposition: Admit MEDICAL DECISION MAKING: The patient is a pleasant 76-year-old woman who presents to the emergency department accompanied by her friend for evaluation of generalized weakness and body body aches, diarrhea, and upset stomach over the past week. The patient did not notice herself but her friend did acknowledge that she did appear jaundiced to him. She reports intermittent nausea but denies nausea at this time. She denies any cough, congestion, chest pain or shortness of breath, sx. On arrival the patient is fatigued appearing but in no acute distress, afebrile, HR 100s and otherwise stable vital signs. She appears clinically dry. She does have overt scleral icterus as well as moderate jaundice diffusely. Her abdomen is nontender. WBC, H/H, platelets wnl. Chemistry without acidosis. Electrolytes unremarkable. Elevated Total bilirubin to 12.4 and direct bilirubin of 6.2. AST, ALT, AP 148, 217, 738, respectively. Lipase wnl. UA with bacteria and WBC albeit with epithelial cells and patient denies urinary sx. CT of the abdomen pelvis was performed and demonstrates ductal dilatation at the head of the pancreas with suspicion for underlying neoplasm.Findings were reviewed with the patient and her friend at the bedside and she does agree with plan for admission for further evaluation. Case was discussed with Dr. Ching, [facility] [place] hospitalist to evaluate the patient for admission. Case also reviewed with Dr. Yessenia GRAYSON GI who confirms that ERCP will be available tomorrow. Admitting team updated. Triage Nursing notes reviewed and agree them. Prior medical records reviewed Vital Signs: reviewed and remarkable for tachycardia. Differential diagnosis: Infection, dehydration, metabolic abnormality, hypo/hyperglycemia, electrolyte disturbance, anemia, hypoxia, cardiac sources, intracerebral event, toxicologic, neurologic, as well as other pathologies. ER treatment provided: See below. Diagnostics interpreted by me: ECG: NSR, 82 bpm, no ectopy, no overt ST elevation or depression. Cardiac Monitoring: An order for continuous cardiac monitoring was placed and demonstrated NSR, 82 bpm, no ectopy. Laboratory studies: See below Imaging studies: See below Consultation(s): Dr. Casas, CT GI. Dr. Ching, [facility] [place] hospitalist. HPI: The patient is a pleasant 76-year-old woman who presents to the emergency department accompanied by her friend for evaluation of generalized weakness and body body aches, diarrhea, and upset stomach over the past week. The patient did not notice herself but her friend did acknowledge that she did appear jaundiced to him. She reports intermittent nausea but denies nausea at this time. She denies any cough, congestion, chest pain or shortness of breath, sx. ROS: See above HPI for pertinent positives & negatives. A total of 10 systems reviewed and were otherwise negative. VITALS:See Below PHYSICAL EXAMINATION: GENERAL: Awake, alert, fatigued-appearing, in no distress HENT: Normocephalic, atraumatic. Oropharynx with dry mucous membranes and otherwise unremarkable. EYES: Normal conjunctiva. Sclera moderately icteric. NECK: Supple. No nuchal rigidity. FROM. No JVD. RESPIRATORY: Clear to auscultation. CARDIAC: Tachycardic rate, normal rhythm. Extremities warm and well perfused. Pulses equal. ABDOMEN: Soft, non-distended. No tenderness to palpation. No rebound or guarding. No masses. RECTAL: Deferred. MUSCULOSKELETAL: Chest examination reveals no tenderness. The back is symmetrical on inspection without obvious abnormality. There is no CVA tenderness to palpation. No joint edema. LOWER EXTREMITIES: Calves are equal size bilaterally and non-tender. No edema. No discoloration. NEURO: Normal sensorium. No sensory or motor deficits noted. SKIN: No rash. Moderate jaundice noted. Preet Soriano MD Past Med/Surg History Medical History Fatigue Surgical History H/O total hysterectomy with bilateral salpingo-oophorectomy (BSO) Family History Father Myocardial infarction Denies family history of Ovarian cancer Prostate cancer Coronary heart disease Breast cancer Lung cancer Social History Smoking Status: Former smoker Second Hand Exposure: No; Do You Dip or Chew Tobacco: No; Hx Alcohol Use: No Hx Substance Use: No Preferred Language: Upper Sorbian Communication Ability: Effective Visual Impairment: No Limitations Hearing Ability: Normal Whey Department Operator Required: No Beliefs That Will Affect Care: None marital status: / Current Living Situation: Alone current occupational status: retired How many Children do You have: 0 Other Information That Helps Us Care for You: No Feels Safe at Home: Yes Safety Concerns: Feels Safe At This Time Childhood Exposure to Second-Hand Smoke: Yes Dental Care, Regularly: No Physical Activity Frequency: Daily Physical Activity Frequency Comment: 10 minutes; walk Seatbelt Use: always Sunscreen Use: No Assistive Devices: None Assistive Devices Comment: reading glasses Allergies Allergies Allergy/AdvReac Type Severity Reaction Status Date / Time grass pollen Allergy Swelling Unverified 11/09/21 16:04 of the Eye Home Meds Home Medications Medication Instructions Recorded Confirmed aspirin 81 mg tablet,delayed 81 mg PO DAILY 04/15/20 11/09/21 release (Adult Low Dose Aspirin) acetaminophen 325 mg tablet 325 mg PO QID PRN 11/09/21 11/09/21 Results & Data (ED) Vital Signs Vital Signs - 24 hr 11/09/21 17:23 11/09/21 17:30 Pulse Rate 79 77 Respiratory Rate 25 H 20 Blood Pressure 126/99 Blood Pressure Mean 108 Laboratory Data Attestation: I reviewed the patient's lab results. Result diagrams: 11/10/21 07:32 11/10/21 07:32 Lab Results 11/09/21 11/09/21 11/09/21 Range/Units 12:14 12:14 12:14 WBC 10.52 (4.8-10.8) K/uL RBC 4.36 (4.2-5.4) M/uL Hgb 13.8 (12.0-16.0) g/dL Hct 39.0 (37-47) % MCV 89.4 (80-100) fL MCH 31.7 (25-34) pg MCHC 35.4 (32-36) g/dL RDW Std Deviation 52.6 H (36.4-46.3) fL RDW Coeff of Artie 16.0 H (11.5-14.5) % Plt Count 334 (130-400) K/uL MPV 12.1 H (7.4-10.4) fL Immature Gran % (Auto) 0.3 % Neut % (Auto) 67.3 % Lymph % (Auto) 22.3 % [place] % (Auto) 4.8 % Eos % (Auto) 4.5 % Baso % (Auto) 0.8 % Neut # (Auto) 7.08 H (1.4-6.5) K/uL Lymph # (Auto) 2.35 (1.2-3.4) K/uL [place] # (Auto) 0.51 (0.11-0.59) K/uL Eos # (Auto) 0.47 (0-0.5) K/uL Baso # (Auto) 0.08 (0-0.2) K/uL Immature Gran # (Auto) 0.03 H (0.00-0.02) K/uL PT 11.9 (9.0-12.0) Seconds INR 1.1 (0.9-1.1) Sodium 136 (136-145) mmol/L Potassium 3.6 (3.5-5.1) mmol/L Chloride 102 (98-107) mmol/L Carbon Dioxide 26 (21-32) mmol/L Anion Gap 8 (3-11) BUN 16 (6-23) mg/dl Creatinine 0.73 (0.6-1.2) mg/dl Est Cr Clr Drug Dosing 44.0 ml/min Est GFR ( Amer) 92.1 ml/min Est GFR (Non-Af Amer) 79.4 ml/min BUN/Creatinine Ratio 21.9 H (10-20) Glucose 137 H (70-99(Fasting)) mg/dl Calcium 9.8 (8.5-10.1) mg/dl Total Bilirubin 12.4 H (0.2-1.0) mg/dl Direct Bilirubin (0-0.2) mg/dl AST 148 H (13-39) U/L ALT 217 H (7-52) U/L Alkaline Phosphatase 738 H (34-104) U/L Total Protein 7.4 (6.0-8.3) gm/dl Albumin 4.2 (3.4-5.0) gm/dl Globulin 3.2 (2.5-4.0) gm/dl Albumin/Globulin Ratio 1.3 (0.9-2) Lipase 16 (11-82) U/L Urine Color Urine Appearance (Clear) Urine pH (4.5-7.5) Ur Specific [place] (1.000-1.030) Urine Protein (Negative) Urine Glucose (UA) (Negative) Urine Ketones (Negative) Urine Blood (Negative) Urine Nitrite (Negative) Urine Bilirubin (Negative) Urine Urobilinogen (Negative) Ur Leukocyte Esterase (Negative) Urine WBC (Auto) (0-5) /hpf Urine RBC (Auto) (0-4) /hpf U Hyaline Cast (Auto) (0-5) /lpf U Epithel Cells (Auto) (0-5) /lpf Urine Bacteria (Auto) (Negative) SARS-CoV-2, RNA, NAAT (NEGATIVE) 11/09/21 11/09/21 11/09/21 Range/Units 14:06 14:15 15:45 WBC (4.8-10.8) K/uL RBC (4.2-5.4) M/uL Hgb (12.0-16.0) g/dL Hct (37-47) % MCV (80-100) fL MCH (25-34) pg MCHC (32-36) g/dL RDW Std Deviation (36.4-46.3) fL RDW Coeff of Artie (11.5-14.5) % Plt Count (130-400) K/uL MPV (7.4-10.4) fL Immature Gran % (Auto) % Neut % (Auto) % Lymph % (Auto) % [place] % (Auto) % Eos % (Auto) % Baso % (Auto) % Neut # (Auto) (1.4-6.5) K/uL Lymph # (Auto) (1.2-3.4) K/uL [place] # (Auto) (0.11-0.59) K/uL Eos # (Auto) (0-0.5) K/uL Baso # (Auto) (0-0.2) K/uL Immature Gran # (Auto) (0.00-0.02) K/uL PT (9.0-12.0) Seconds INR (0.9-1.1) Sodium (136-145) mmol/L Potassium (3.5-5.1) mmol/L Chloride (98-107) mmol/L Carbon Dioxide (21-32) mmol/L Anion Gap (3-11) BUN (6-23) mg/dl Creatinine (0.6-1.2) mg/dl Est Cr Clr Drug Dosing ml/min Est GFR ( Amer) ml/min Est GFR (Non-Af Amer) ml/min BUN/Creatinine Ratio (10-20) Glucose (70-99(Fasting)) mg/dl Calcium (8.5-10.1) mg/dl Total Bilirubin (0.2-1.0) mg/dl Direct Bilirubin 6.2 H (0-0.2) mg/dl AST (13-39) U/L ALT (7-52) U/L Alkaline Phosphatase (34-104) U/L Total Protein (6.0-8.3) gm/dl Albumin (3.4-5.0) gm/dl Globulin (2.5-4.0) gm/dl Albumin/Globulin Ratio (0.9-2) Lipase (11-82) U/L Urine Color Dark Yellow Urine Appearance Clear (Clear) Urine pH 6.5 (4.5-7.5) Ur Specific [place] 1.041 H (1.000-1.030) Urine Protein Negative (Negative) Urine Glucose (UA) Negative (Negative) Urine Ketones Negative (Negative) Urine Blood 1+ H (Negative) Urine Nitrite Negative (Negative) Urine Bilirubin 2+ H (Negative) Urine Urobilinogen Negative (Negative) Ur Leukocyte Esterase 2+ H (Negative) Urine WBC (Auto) >30 H (0-5) /hpf Urine RBC (Auto) 10-30 H (0-4) /hpf U Hyaline Cast (Auto) 1-5 (0-5) /lpf U Epithel Cells (Auto) >30 H (0-5) /lpf Urine Bacteria (Auto) 1+ H (Negative) SARS-CoV-2, RNA, NAAT NEGATIVE (NEGATIVE) Administered Medications Lactated Ringer's (Lr) 1,000 mls @ 80 mls/hr IV .[id number] Stop: 12/09/21 21:44 Last Admin: 11/10/21 11:27 Dose: 80 mls/hr Documented by: [id number] Infusion: 11/10/21 10:48 Dose: 80 mls/hr Documented by: [id number] Infusion: 11/10/21 06:21 Dose: 80 mls/hr Documented by: [id number] Admin: 11/09/21 22:17 Dose: 80 mls/hr Documented by: [id number] Ondansetron HCl (Ondansetron Inj 2 Mg/Ml 2 Ml Vial) 4 mg IV Q6H PRN PRN Reason: Nausea And Vomiting Stop: 12/10/21 01:30 Last Admin: 11/10/21 01:43 Dose: 4 mg Documented by: [id number] Discontinued Medications Ciprofloxacin (Ciprofloxacin 400mg / 200ml D5w) Confirm Administered Dose 400 mg IV .STK-MED ONE Stop: 11/10/21 13:01 Last Admin: 11/10/21 13:31 Dose: 400 mg Documented by: [id number] Sodium Chloride (Nss 1000ml) 1,000 mls @ 999 mls/hr IV .Q1H1M ONE Stop: 11/09/21 14:50 Last Infusion: 11/09/21 15:26 Dose: 0 mls/hr Documented by: [id number] Admin: 11/09/21 14:06 Dose: 999 mls/hr Documented by: [id number] Ioversol (Optiray 320 100ml) 93 ml IV ONCE ONE Stop: 11/09/21 14:27 Last Admin: 11/09/21 14:26 Dose: 93 ml Documented by: [id number] Ketorolac Tromethamine (Ketorolac Tromethamine 15 Mg/Ml Vial) 15 mg IV NOW ONE Stop: 11/10/21 01:32 Last Admin: 11/10/21 01:43 Dose: 15 mg Documented by: [id number] Imaging Data Radiologist's Impression: Abdomen/Pelvis CT 11/09/21 13:50 CT OF THE ABDOMEN AND PELVIS WITH CONTRAST CLINICAL HISTORY: Painless jaundice. COMPARISON STUDY: None. TECHNIQUE: Following IV administration of 93 mL of Optiray, axial images of the abdomen and pelvis were obtained from the lung bases to the proximal femurs. Images were reviewed in the axial, sagittal, and coronal planes. IV contrast was administered without complication. Automated exposure control was utilized for the study. A dose lowering technique was utilized adhering to the principles of ALARA. CT DOSE: 255.05 mGy.cm FINDINGS: Lung bases are unremarkable. No pneumatosis, free air or portal venous gas is present. Note is made of moderate to marked biliary and pancreatic ductal dilatation. Common bile duct measures 1.9 cm in caliber. Main pancreatic duct measures 1.1 cm in caliber. There is pancreatic glandular atrophy. Caliber change of the pancreatic duct within the region of the pancreatic head on axial image 158 is noted. Although not well delineated, the findings are suspicious for an underlying pancreatic or ampullary mass. No lymphadenopathy is present. Gallbladder is mildly distended. There is layering material within the gallbladder. This may reflect sludge. No suspicious hepatic lesions are present. 5.3 cm lateral segment cyst is present. A 1.4 cm left adrenal nodule is noted. Right adrenal gland and spleen are unremarkable. Right kidney is normal. A few suspected cysts within the upper pole of the left kidney are present. Note is made of a prominent left para-aortic lymph node on axial image 139 of 416 and measures 1.2 x 0.8 cm. This is just below the level of the left renal artery. No pathologically enlarged lymph nodes are present. There is no evidence for a bowel obstruction. Caliber and wall thickness of small and large bowel are normal. The appendix is normal. No acute fracture or suspicious lesion within the visualized skeletal structures is present. There is moderate aortoiliac atherosclerotic plaque. IMPRESSION: 1. Moderate to marked biliary and pancreatic ductal dilatation with ductal caliber change at the level of the pancreatic head. 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 An obstructing calculus is also within the differential but considered less likely. GI consultation for consideration for ERCP is recommended. 2. Prominent left para-aortic lymph node and a 1.4 cm left adrenal nodule. These are indeterminate and should be assessed on follow-up exams to ensure stability. 3. No suspicious hepatic lesions. ACT 112: Positive. There are findings on this exam that require communication between the performing entity and the patient following Patient Test Result Information Act ([place] Act 112) guidelines. Electronically signed by: Heriberto Edwards M.D. 11/09/2021 3:16 PM Discharge Plan Visit Data Chief Complaint: GI Assessment Stated Complaint: BOOSTER SHOT SIDE EFFECTS,WEAKNESS,FELL ED Provider: Preet Soriano Discharge Problem: Painless jaundice, Common bile duct (CBD) obstruction, Hyperbilirubinemia Patient Disposition: Admitted As Inpatient Discharge Instructions Interventions: ED Discharge Assessment Last Done: 11/09/21 20:32
[2021-11-10 08:29] LABS: Hematocrit (blood only) 35.8 % (37-47); Hemoglobin 12.2 g/dL (12.0-16.0); Mean Corpuscular Hemoglobin 30.3 pg (25-34); Mean Corpuscular Hgb Conc 34.1 g/dL (32-36); Mean Corpuscular Volume 88.8 fL (80-100); Mean Platelet Volume 12.5 fL (7.4-10.4); Platelet Count 329 K/uL (130-400); RDW Coefficient of Variation 16.1 % (11.5-14.5); RDW Standard Deviation 52.3 fL (36.4-46.3); Red Blood Count 4.03 M/uL (4.2-5.4); White Blood Count 9.42 K/uL (4.8-10.8)
[2021-11-10 08:42] LABS: BUN Creatinine Ratio 22.9 (10-20); Calcium 8.9 mg/dl (8.5-10.1); Creatinine Clr Calc Pharmacy 66.9 ml/min; Est GFR (African American) 109.7 ml/min; Est GFR (Non-African American) 94.6 ml/min; Potassium 3.6 mmol/L (3.5-5.1)
[2021-11-10 09:03] LABS: Albumin Globulin Ratio 1.3 (0.9-2); Albumin Level 3.4 gm/dl (3.4-5.0); Globulin 2.6 gm/dl (2.5-4.0)
--- NOTE | 2021-11-10 09:10 | Gastrointestinal Consultation ---
Date of Consultation November 10, 2021 Assessment & Plan (1) Painless jaundice: 76 year old female admitted with painless jaundice, imaging concerning for double duct sign concerning for an underlying malignancy. She does report nausea/vomiting/diarrhea and weight loss about 1-2 weeks ago but symptoms resolved NPO EUS/ERCP today Continue LR as ordered Continue antiemetics as needed Analgesia PRN Supervising Physician Co-Signing Physician Notes I saw and evaluated the patient. She presents with several weeks of worsening and development of jaundice. She underwent a recent imaging which seems to indicate pancreatic head mass. Physical examination Scleral icterus noted No JVD noted Minimal epigastric tenderness noted Impression: Patient presents with new onset jaundice with imaging suggestive of a distal common bile duct obstruction likely mass in the pancreatic head. We are planning to do upper endoscopy endoscopic ultrasound and finally ERCP for biliary decompression this afternoon. I discussed the risks and benefits of the procedures with the patient to include bleeding infection perforation pain insufficient cellularity, failed biliary cannulation and need for follow-up studies. History of Present Illness Reason for Consultation: elevated LFTs Requesting Physician: Jeane Attending Physician: Marcel Ching MD History of Present Illness 76 year old female with history of CAD, NSTEMI in 2019 with LISET x2 to RCA on ASA others below admitted with jaundice - GI asked to evaluate given her elevated LFTs and abnormal imaging. Pt was seen and evaluated, chart reviewed. She is a poor historian. She suggests about 2 weeks ago she had a "stomach bug." At this time she had generalized discomfort nausea/vomiting and nonbloody diarrhea. She does not report any associated fever. This was associated with an acute weight loss, but denies weight loss prior to this illness. No fever, chills, CP, SOB. Uses ASA No other NSAIDs No new medications Denies ETOH use Used tobacco products as a child for less than a year CTAP 2021: 1. Moderate to marked biliary and pancreatic ductal dilatation with ductal caliber change at the level of the pancreatic head. 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 An obstructing calculus is also within the differential but considered less likely. GI consultation for consideration for ERCP is recommended. Prominent left para- aortic lymph node and a 1.4 cm left adrenal nodule. These are indeterminate and should be assessed on follow-up exams to ensure stability. Allergies Allergy/AdvReac Type Severity Reaction Status Date / Time grass pollen Allergy Swelling Unverified 11/09/21 16:04 of the Eye Home Medications Medication Instructions Recorded Confirmed Type aspirin 81 mg tablet,delayed 81 mg PO DAILY 04/15/20 11/09/21 History release (Adult Low Dose Aspirin) acetaminophen 325 mg tablet 325 mg PO QID PRN 11/09/21 11/09/21 History Patient History Medical History Fatigue Surgical History H/O total hysterectomy with bilateral salpingo-oophorectomy (BSO) Family History Father Myocardial infarction Denies family history of Ovarian cancer Prostate cancer Coronary heart disease Breast cancer Lung cancer Social History Smoking Status: Former smoker Second Hand Exposure: No; Do You Dip or Chew Tobacco: No; Hx Alcohol Use: No Hx Substance Use: No Preferred Language: Greenlandic Communication Ability: Effective Visual Impairment: No Limitations Hearing Ability: Normal 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 Beliefs That Will Affect Care: None marital status: / Current Living Situation: Alone current occupational status: retired How many Children do You have: 0 Other Information That Helps Us Care for You: No Feels Safe at Home: Yes Safety Concerns: Feels Safe At This Time Childhood Exposure to Second-Hand Smoke: Yes Dental Care, Regularly: No Physical Activity Frequency: Daily Physical Activity Frequency Comment: 10 minutes; walk Seatbelt Use: always Sunscreen Use: No Assistive Devices: None Assistive Devices Comment: reading glasses Review of Systems Review of Systems: All systems reviewed & are unremarkable except as noted in HPI & below Physical Exam Constitutional: WD/WN, vitals as above Eyes: + icterus Neck: trachea midline, no thyromegaly Respiratory: normal respiratory effort Cardiovascular: Rate/Rhythm: regular rate and regular rhythm Gastrointestinal (Abdomen): normal bowel sounds, soft, nontender, no hepatosplenomegaly Skin: +jaundice Results & Data ([facility]) Vital Signs (Past 12 Hours) Vital Signs Temp Pulse Resp BP Pulse Ox 11/10/21 07:14 36.7 C 83 16 155/88 H 94 11/09/21 22:55 36.7 C 80 16 129/64 94 Laboratory Results 11/10/21 11/10/21 11/10/21 Range/Units 07:32 07:32 07:32 WBC 9.42 (4.8-10.8) K/uL RBC 4.03 L (4.2-5.4) M/uL Hgb 12.2 (12.0-16.0) g/dL Hct 35.8 L (37-47) % MCV 88.8 (80-100) fL MCH 30.3 (25-34) pg MCHC 34.1 (32-36) g/dL RDW Std Deviation 52.3 H (36.4-46.3) fL RDW Coeff of Artie 16.1 H (11.5-14.5) % Plt Count 329 (130-400) K/uL MPV 12.5 H (7.4-10.4) fL Immature Gran % (Auto) % Neut % (Auto) % Lymph % (Auto) % Randolph % (Auto) % Eos % (Auto) % Baso % (Auto) % Neut # (Auto) (1.4-6.5) K/uL Lymph # (Auto) (1.2-3.4) K/uL Randolph # (Auto) (0.11-0.59) K/uL Eos # (Auto) (0-0.5) K/uL Baso # (Auto) (0-0.2) K/uL Immature Gran # (Auto) (0.00-0.02) K/uL PT (9.0-12.0) Seconds INR (0.9-1.1) Sodium 134 L (136-145) mmol/L Potassium 3.6 (3.5-5.1) mmol/L Chloride 102 (98-107) mmol/L Carbon Dioxide 23 (21-32) mmol/L Anion Gap 9 (3-11) BUN 11 (6-23) mg/dl Creatinine 0.48 L (0.6-1.2) mg/dl Est Cr Clr Drug Dosing 66.9 ml/min Est GFR ( Amer) 109.7 ml/min Est GFR (Non-Af Amer) 94.6 ml/min BUN/Creatinine Ratio 22.9 H (10-20) Glucose 106 H (70-99(Fasting)) mg/dl Calcium 8.9 (8.5-10.1) mg/dl Total Bilirubin 11.0 H (0.2-1.0) mg/dl Direct Bilirubin (0-0.2) mg/dl AST 126 H (13-39) U/L ALT Pending (7-52) U/L Alkaline Phosphatase 643 H (34-104) U/L Total Protein 6.0 (6.0-8.3) gm/dl Albumin 3.4 (3.4-5.0) gm/dl Globulin 2.6 (2.5-4.0) gm/dl Albumin/Globulin Ratio 1.3 (0.9-2) Lipase (11-82) U/L Urine Color Urine Appearance (Clear) Urine pH (4.5-7.5) Ur Specific Liberty (1.000-1.030) Urine Protein (Negative) Urine Glucose (UA) (Negative) Urine Ketones (Negative) Urine Blood (Negative) Urine Nitrite (Negative) Urine Bilirubin (Negative) Urine Urobilinogen (Negative) Ur Leukocyte Esterase (Negative) Urine WBC (Auto) (0-5) /hpf Urine RBC (Auto) (0-4) /hpf U Hyaline Cast (Auto) (0-5) /lpf U Epithel Cells (Auto) (0-5) /lpf Urine Bacteria (Auto) (Negative) Hepatitis C Ab (EIA) Pending Hep C Ab Signal/Cutoff Pending SARS-CoV-2, RNA, NAAT (NEGATIVE) 11/09/21 11/09/21 11/09/21 Range/Units 15:45 14:15 14:06 WBC (4.8-10.8) K/uL RBC (4.2-5.4) M/uL Hgb (12.0-16.0) g/dL Hct (37-47) % MCV (80-100) fL MCH (25-34) pg MCHC (32-36) g/dL RDW Std Deviation (36.4-46.3) fL RDW Coeff of Artie (11.5-14.5) % Plt Count (130-400) K/uL MPV (7.4-10.4) fL Immature Gran % (Auto) % Neut % (Auto) % Lymph % (Auto) % Randolph % (Auto) % Eos % (Auto) % Baso % (Auto) % Neut # (Auto) (1.4-6.5) K/uL Lymph # (Auto) (1.2-3.4) K/uL Randolph # (Auto) (0.11-0.59) K/uL Eos # (Auto) (0-0.5) K/uL Baso # (Auto) (0-0.2) K/uL Immature Gran # (Auto) (0.00-0.02) K/uL PT (9.0-12.0) Seconds INR (0.9-1.1) Sodium (136-145) mmol/L Potassium (3.5-5.1) mmol/L Chloride (98-107) mmol/L Carbon Dioxide (21-32) mmol/L Anion Gap (3-11) BUN (6-23) mg/dl Creatinine (0.6-1.2) mg/dl Est Cr Clr Drug Dosing ml/min Est GFR ( Amer) ml/min Est GFR (Non-Af Amer) ml/min BUN/Creatinine Ratio (10-20) Glucose (70-99(Fasting)) mg/dl Calcium (8.5-10.1) mg/dl Total Bilirubin (0.2-1.0) mg/dl Direct Bilirubin 6.2 H (0-0.2) mg/dl AST (13-39) U/L ALT (7-52) U/L Alkaline Phosphatase (34-104) U/L Total Protein (6.0-8.3) gm/dl Albumin (3.4-5.0) gm/dl Globulin (2.5-4.0) gm/dl Albumin/Globulin Ratio (0.9-2) Lipase (11-82) U/L Urine Color Dark Yellow Urine Appearance Clear (Clear) Urine pH 6.5 (4.5-7.5) Ur Specific Liberty 1.041 H (1.000-1.030) Urine Protein Negative (Negative) Urine Glucose (UA) Negative (Negative) Urine Ketones Negative (Negative) Urine Blood 1+ H (Negative) Urine Nitrite Negative (Negative) Urine Bilirubin 2+ H (Negative) Urine Urobilinogen Negative (Negative) Ur Leukocyte Esterase 2+ H (Negative) Urine WBC (Auto) >30 H (0-5) /hpf Urine RBC (Auto) 10-30 H (0-4) /hpf U Hyaline Cast (Auto) 1-5 (0-5) /lpf U Epithel Cells (Auto) >30 H (0-5) /lpf Urine Bacteria (Auto) 1+ H (Negative) Hepatitis C Ab (EIA) Hep C Ab Signal/Cutoff SARS-CoV-2, RNA, NAAT NEGATIVE (NEGATIVE) 11/09/21 11/09/21 11/09/21 Range/Units 12:14 12:14 12:14 WBC 10.52 (4.8-10.8) K/uL RBC 4.36 (4.2-5.4) M/uL Hgb 13.8 (12.0-16.0) g/dL Hct 39.0 (37-47) % MCV 89.4 (80-100) fL MCH 31.7 (25-34) pg MCHC 35.4 (32-36) g/dL RDW Std Deviation 52.6 H (36.4-46.3) fL RDW Coeff of Artie 16.0 H (11.5-14.5) % Plt Count 334 (130-400) K/uL MPV 12.1 H (7.4-10.4) fL Immature Gran % (Auto) 0.3 % Neut % (Auto) 67.3 % Lymph % (Auto) 22.3 % Randolph % (Auto) 4.8 % Eos % (Auto) 4.5 % Baso % (Auto) 0.8 % Neut # (Auto) 7.08 H (1.4-6.5) K/uL Lymph # (Auto) 2.35 (1.2-3.4) K/uL Randolph # (Auto) 0.51 (0.11-0.59) K/uL Eos # (Auto) 0.47 (0-0.5) K/uL Baso # (Auto) 0.08 (0-0.2) K/uL Immature Gran # (Auto) 0.03 H (0.00-0.02) K/uL PT 11.9 (9.0-12.0) Seconds INR 1.1 (0.9-1.1) Sodium 136 (136-145) mmol/L Potassium 3.6 (3.5-5.1) mmol/L Chloride 102 (98-107) mmol/L Carbon Dioxide 26 (21-32) mmol/L Anion Gap 8 (3-11) BUN 16 (6-23) mg/dl Creatinine 0.73 (0.6-1.2) mg/dl Est Cr Clr Drug Dosing 44.0 ml/min Est GFR ( Amer) 92.1 ml/min Est GFR (Non-Af Amer) 79.4 ml/min BUN/Creatinine Ratio 21.9 H (10-20) Glucose 137 H (70-99(Fasting)) mg/dl Calcium 9.8 (8.5-10.1) mg/dl Total Bilirubin 12.4 H (0.2-1.0) mg/dl Direct Bilirubin (0-0.2) mg/dl AST 148 H (13-39) U/L ALT 217 H (7-52) U/L Alkaline Phosphatase 738 H (34-104) U/L Total Protein 7.4 (6.0-8.3) gm/dl Albumin 4.2 (3.4-5.0) gm/dl Globulin 3.2 (2.5-4.0) gm/dl Albumin/Globulin Ratio 1.3 (0.9-2) Lipase 16 (11-82) U/L Urine Color Urine Appearance (Clear) Urine pH (4.5-7.5) Ur Specific Liberty (1.000-1.030) Urine Protein (Negative) Urine Glucose (UA) (Negative) Urine Ketones (Negative) Urine Blood (Negative) Urine Nitrite (Negative) Urine Bilirubin (Negative) Urine Urobilinogen (Negative) Ur Leukocyte Esterase (Negative) Urine WBC (Auto) (0-5) /hpf Urine RBC (Auto) (0-4) /hpf U Hyaline Cast (Auto) (0-5) /lpf U Epithel Cells (Auto) (0-5) /lpf Urine Bacteria (Auto) (Negative) Hepatitis C Ab (EIA) Hep C Ab Signal/Cutoff SARS-CoV-2, RNA, NAAT (NEGATIVE)
[2021-11-10 09:45] LABS: Basophils # (auto) 0.07 K/uL (0-0.2); Basophils % (auto) 0.7 %; Eosinophils # (auto) 0.24 K/uL (0-0.5); Eosinophils % (auto) 2.5 %; Immature Granulocytes # (auto) 0.02 K/uL (0.00-0.02); Immature Granulocytes % (auto) 0.2 %; Lymphocytes # (auto) 1.95 K/uL (1.2-3.4); Lymphocytes % (auto) 20.7 %; Monocytes # (auto) 0.55 K/uL (0.11-0.59); Monocytes % (auto) 5.8 %; Neutrophils # (auto) 6.59 K/uL (1.4-6.5); Neutrophils % (auto) 70.1 %
[2021-11-10] MEDS ORDERED: ACETAMINOPHEN 1000 MG/100 ML IV IV PRN (10:29)
[2021-11-10] MEDS ORDERED: ACETAMINOPHEN 1,000 MG/100 ML VIAL IV PRN (10:45)
[2021-11-10] MEDS: LACTATED RINGER'S 1,000 ML IV SCH ×2 (11:27→22:27)
--- NOTE | 2021-11-10 12:54 | Anesthesiology Consultation ---
Date of Service November 10, 2021 Assessment & Plan Chart Review Chart Review: Acceptable Risk for Surgery and Patient NOT seen in Pre Admission Testing Consults Requested none ASA [id number] Proposed Anesthesia Anesthesia Type: General History Surgery Operation Date: 11/10/21 08:55 Proposed Procedures p Endoscopic Retrograde Cholangiopancreatogram - Omid Pop DO s Endoscopic Ultrasonography Upper - Omid Pop DO Operation Date: 11/10/21 12:00 Proposed Procedures p Esophagogastroduodenoscopy - Omid Pop DO Height/Weight Height: 4 ft 11 in Weight: 47.4 kg Allergies Allergy/AdvReac Type Severity Reaction Status Date / Time grass pollen Allergy Swelling Unverified 11/09/21 16:04 of the Eye Medications Home Medications Medication Instructions Recorded Confirmed Last Taken aspirin 81 mg tablet,delayed 81 mg PO DAILY 04/15/20 11/09/21 11/09/21 release (Adult Low Dose Aspirin) acetaminophen 325 mg tablet 325 mg PO QID PRN 11/09/21 11/09/21 Unknown Active Medications Generic Name Dose Route Start Last Admin Trade Name Freq PRN Reason Stop Dose Admin Lactated Ringer's 1,000 mls @ 80 mls/hr 11/09/21 21:45 11/10/21 11:27 Lr IV 12/09/21 21:44 80 mls/hr .[id number] [id number] Administration Ondansetron HCl 4 mg 11/10/21 01:31 11/10/21 01:43 Ondansetron Inj 2 Mg/Ml 2 Ml Vial IV 12/10/21 01:30 4 mg Q6H PRN Administration Nausea And Vomiting Past Medical History Medical History Fatigue Exercise / Class Metabolic Activity III < 4 Walking/Shop/Light housework Past Family History Family History Father Myocardial infarction Denies family history of Ovarian cancer Prostate cancer Coronary heart disease Breast cancer Lung cancer Past Surgical History Surgical History H/O total hysterectomy with bilateral salpingo-oophorectomy (BSO) Past Anesthesia History No Hx of Anesthesia Complications and No Family Hx of Anesthesia Complications History of PONV No Hx of PONV and No Hx of Motion Sickness Social History Smoking Status: Former smoker Do You Dip or Chew Tobacco: No Hx Alcohol Use: No Hx Substance Use: No Physical Exam Vital Signs Last Vital Signs Temp 36.7 C 11/10/21 07:14 Pulse 83 11/10/21 07:14 Resp 16 11/10/21 07:14 BP 155/88 H 11/10/21 07:14 Pulse Ox 94 11/10/21 07:14 Testing Laboratory Results 11/10/21 07:32 11/10/21 07:32 PT 11.9 Seconds (9.0-12.0) 11/09/21 12:14 INR 1.1 (0.9-1.1) 11/09/21 12:14 Urine Color Dark Yellow 11/09/21 15:45 Urine Appearance Clear (Clear) 11/09/21 15:45 Urine pH 6.5 (4.5-7.5) 11/09/21 15:45 Ur Specific [place] 1.041 (1.000-1.030) H 11/09/21 15:45 Urine Protein Negative (Negative) 11/09/21 15:45 Urine Glucose (UA) Negative (Negative) 11/09/21 15:45 Urine Ketones Negative (Negative) 11/09/21 15:45 Urine Nitrite Negative (Negative) 11/09/21 15:45 Ur Leukocyte Esterase 2+ (Negative) H 11/09/21 15:45 Urine WBC (Auto) >30 /hpf (0-5) H 11/09/21 15:45 Urine RBC (Auto) 10-30 /hpf (0-4) H 11/09/21 15:45 U Hyaline Cast (Auto) 1-5 /lpf (0-5) 11/09/21 15:45 U Epithel Cells (Auto) >30 /lpf (0-5) H 11/09/21 15:45 Urine Bacteria (Auto) 1+ (Negative) H 11/09/21 15:45 11/09/21 15:45 Urine Culture - Preliminary Urine,Clean Catch No growth - Less than 1,000 colonies/mL, Final report to follow.
[2021-11-10] MEDS ORDERED: CIPROFLOXACIN 400MG / 200ML D5W IV ONE (13:00)
[2021-11-10] MEDS ORDERED: FLUMAZENIL 0.1 MG/1 ML 10 ML VIAL IV PRN (13:01)
[2021-11-10] MEDS ORDERED: LABETALOL HCL IV 5 MG/ML 20ML IV PRN (13:01)
[2021-11-10] MEDS ORDERED: ePHEDrine sulfate 50 MG/ML AMP IV PRN (13:01)
[2021-11-10] MEDS ORDERED: ATROPINE SULFATE 0.1 MG/ML 10ML SYR IV PRN (13:01)
[2021-11-10] MEDS ORDERED: PROMETHAZINE HCL 12.5 MG in SODIUM CHLORIDE 0.9% 50 ML IV PRN (13:01)
[2021-11-10] MEDS ORDERED: fentaNYL citrate 100 MCG/2 ML VIAL IV PRN (13:01)
[2021-11-10] MEDS ORDERED: NALOXONE HCL 0.4 MG/1 ML VIAL/CARP IV PRN (13:01)
--- NOTE | 2021-11-10 13:04 | Communication Note ---
Date of Service: November 10, 2021 12/26/2019- CARDIAC CATH-LMT-0;LAD50% prox to mid;LCX-40%;RCA-mid LISET x 2 11/09/[id number] @ 82
[2021-11-10] MEDS ORDERED: INDOMETHACIN 50 MG SUPP PR ONE (13:09)
--- NOTE | 2021-11-10 13:09 | History & Physical Bridge Note ---
Date of Service November 10, 2021 History & Physical Bridge Note I have examined the patient, reviewed the History & Physical and in the interval since the performance of the History & Physical I have noted the following changes of clinical significance: no changes noted. We are planning to proceed with upper endoscopy, endoscopic ultrasound and ERCP this afternoon for evaluation of painless jaundice. Based on the patient's imaging we are concerned about distal obstruction from a pancreatic mass. I discussed the risks and benefits of the procedures with the patient to include bleeding infection perforation pain pancreatitis failed biliary cannulation and need for follow-up studies.
[2021-11-10] MEDS ORDERED: fentaNYL citrate 100 MCG/2 ML VIAL ONE (13:12)
[2021-11-10] MEDS ORDERED: CIPROFLOXACIN / D5W 400 MG/200 ML BAG IV SCH (13:30)
--- NOTE | 2021-11-10 13:53 | GI REPORT ---
Patient Name: Amisha Amaral Procedure Date: 11/10/2021 1:27 PM Date of : 1945 Admit Type: Inpatient Age: 76 Gender: Female Attending MD: Omid Pop DO Procedure: Upper GI endoscopy Providers: Omid Pop DO Referring MD: Shamir Carson Indications: Abnormal CT of the GI tract Medicines: General Anesthesia Complications: No immediate complications. Estimated blood loss: Minimal. Estimated Blood Loss: Estimated blood loss was minimal. Procedure: Pre-Anesthesia Assessment: - Prior to the procedure, a History and Physical was performed, and patient medications, allergies and sensitivities were reviewed. The patient's tolerance of previous anesthesia was reviewed. - The risks and benefits of the procedure and the sedation options and risks were discussed with the patient. All questions were answered and informed consent was obtained. - Patient identification and proposed procedure were verified prior to the procedure by the physician, the nurse and the pharmacy innovation assistant. The procedure was verified in the procedure room. - Pre-procedure physical examination revealed no contraindications to sedation. - ASA Grade Assessment: IV - A patient with severe systemic disease that is a constant threat to life. - After reviewing the risks and benefits, the patient was deemed in satisfactory condition to undergo the procedure. - The anesthesia plan was to use general anesthesia. - Immediately prior to administration of medications, the patient was re-assessed for adequacy to receive sedatives. - The heart rate, respiratory rate, oxygen saturations, blood pressure, adequacy of pulmonary ventilation, and response to care were monitored throughout the procedure. - The physical status of the patient was re-assessed after the procedure. After obtaining informed consent, the endoscope was passed under direct vision. Throughout the procedure, the patient's blood pressure, pulse, and oxygen saturations were monitored continuously. The Endoscope was introduced through the mouth, and advanced to the third part of duodenum. The upper GI endoscopy was accomplished without difficulty. Findings: The examined esophagus was normal. The Z-line was regular and was found 38 cm from the incisors. The entire examined stomach was normal. The examined duodenum was normal. Impression: - Normal esophagus. - Z-line regular, 38 cm from the incisors. - Normal stomach. - Normal examined duodenum. - No specimens collected. Recommendation: - Perform an upper endoscopic ultrasound (UEUS) today. Omid Pop D.O. Omid Pop, DO 11/10/2021 1:52:46 PM This report has been signed electronically. Note Initiated On: 11/10/2021 1:27 PM Number of Addenda: 0 I attest to the content of the Intraoperative Record and orders documented therein, exceptions below {[id number]}
[2021-11-10] MEDS ORDERED: NEOSTIGMINE METHYLSULFATE 1 MG/ML 10ML VIAL ONE (14:01)
[2021-11-10] MEDS ORDERED: LIDOCAINE 2% 2 ML VIAL/AMP(20MG/ML) INFIL ONE (14:01)
[2021-11-10] MEDS ORDERED: GLYCOPYRROLATE 0.2 MG/ML VIAL ONE (14:01)
[2021-11-10] MEDS ORDERED: PROPOFOL IV EMULSION 10 MG/ML 20 ML VIAL IV ONE (14:01)
[2021-11-10] MEDS ORDERED: ONDANSETRON INJ 2 MG/ML 2 ML VIAL ONE (14:01)
--- NOTE | 2021-11-10 16:15 | Medical Student Progress Note ---
Date of Service November 10, 2021 Assessment & Plan (1) Painless jaundice: Plan: Mrs. Amaral is a 76 year old female admitted with painless progressive jaundice for the past few weeks. She reports having nausea, vomiting, diarrhea about 1-2 weeks ago due to a "stomach virus". She also reports weight loss. Remote history of smoking. Denies alcohol use. -Liver US with evidence of bile duct dilation at the level of pancreatic head -Bilirubin 12.4 at the ED. Trending down to 11.0 -Alk phos 643 -Alt 169 ; Ast 26 -Suspicion for underlying obstructing mass. ?adenocarcinoma -GI consult appreciated -EUS/ERCP today -continue to trend bili, LFTs, and Alkphos -Acetaminophen 1 mg IV Q8H for headaches -continue antiemetics as needed -Continue LR Plan: Diet: NPO Code: Full PPx: hold awaiting GI procedure Admission and Anticipated Discharge Date Admission Date: November 09, 2021 Supervising Attestation I also saw the patient with the medical student and resident physician and confirmed bernstein portions of the history and the physical examination. I agree with the impression and plan as noted in the resident documentation. Exam 155/88, 84, 16, 36.7, 97% on room air Upon our exam midmorning, she is sleepy but awakens to voice, alert and oriented She is notably jaundiced She complains of a headache Respirations are nonlabored Abdomen is soft and nontender Data WBC 9.42, hemoglobin 12.2, platelet count 329 Sodium 134, potassium 3.6, chloride 102, CO2 23, BUN 11, creatinine 0.48 Total bilirubin 11 AST 126, ALT 169, alkaline phosphatase [address] exam of the abdomen pelvis shows moderate to marked biliary and pancreatic ductal dilatation with ductal caliber change at the level of the pancreatic head. Findings are suspicious for an underlying pancreatic head or ampullary neoplasm. An obstructing calculus is also within the differential but considered less likely. A prominent left periaortic lymph node and a 1.4 cm left adrenal nodule also noted. Painless jaundice Suspect pancreatic malignancy, versus obstructing calculus Patient abisai n.p.o. for EUS/ERCP today Tylenol for headache Final recommendations pending results of today's studies Subjective Mrs Amaral is feeling a little tired this morning. She is still NPO. No nausea or vomiting. Reports no abdominal pain. Has some headachse whcih she says is due to eing hungry. Denies fevers, chills, chest pain, SOB, weakness. Review of Systems Constitutional: as per Subjective / HPI; no fever and no sweats Respiratory: no cough, no dyspnea and no dyspnea on exertion Cardiovascular: no chest pain Gastrointestinal: no abdominal pain, no nausea and no vomiting Integumentary: + yellowing of the skin Neurologic: no tingling and no numbness Physical Exam Constitutional: WD/WN, vitals as above well developed, + ill appearing, + cachectic and + frail appearing; + not well nourished and no acute distress Respiratory: normal respiratory effort, lungs clear to auscultation normal respiratory effort Auscultation: lungs clear to auscultation bilaterally Cardiovascular: RRR, no murmur, no edema Rate/Rhythm: regular rate and regular rhythm Heart Sounds: no murmur Vessels: no carotid bruit Gastrointestinal (Abdomen): normal bowel sounds, soft, nontender, no hepatosplenomegaly Inspection/Auscultation: normal bowel sounds Percussion/Palpation: + abdomen tender (mild tenderness left upper quaderant) and abdomen soft; no guarding, abdomen not rigid and no hepatosplenomegaly Skin: + jaundice Neurologic: moves all extremities and awake; no focal motor deficits and not confused Motor/Sensory: no sensory deficit Psychiatric: A+Ox3, euthymic affect Orientation: alert and oriented x 3 Results & Data ([facility]) Vital Signs (Past 12 Hours) Vital Signs Temp Pulse Resp BP Pulse Ox 11/10/21 12:56 36.7 C 84 16 97 11/10/21 07:14 36.7 C 83 16 155/88 H 94 Laboratory Results Laboratory Results WBC 9.42 K/uL (4.8-10.8) 11/10/21 07:32 RBC 4.03 M/uL (4.2-5.4) L 11/10/21 07:32 Hgb 12.2 g/dL (12.0-16.0) 11/10/21 07:32 Hct 35.8 % (37-47) L 11/10/21 07:32 MCV 88.8 fL (80-100) 11/10/21 07:32 MCH 30.3 pg (25-34) 11/10/21 07:32 MCHC 34.1 g/dL (32-36) 11/10/21 07:32 RDW Std Deviation 52.3 fL (36.4-46.3) H 11/10/21 07:32 RDW Coeff of Artie 16.1 % (11.5-14.5) H 11/10/21 07:32 Plt Count 329 K/uL (130-400) 11/10/21 07:32 MPV 12.5 fL (7.4-10.4) H 11/10/21 07:32 Immature Gran % (Auto) 0.2 % 11/10/21 07:32 Neut % (Auto) 70.1 % 11/10/21 07:32 Lymph % (Auto) 20.7 % 11/10/21 07:32 [place] % (Auto) 5.8 % 11/10/21 07:32 Eos % (Auto) 2.5 % 11/10/21 07:32 Baso % (Auto) 0.7 % 11/10/21 07:32 Neut # (Auto) 6.59 K/uL (1.4-6.5) H 11/10/21 07:32 Lymph # (Auto) 1.95 K/uL (1.2-3.4) 11/10/21 07:32 [place] # (Auto) 0.55 K/uL (0.11-0.59) 11/10/21 07:32 Eos # (Auto) 0.24 K/uL (0-0.5) 11/10/21 07:32 Baso # (Auto) 0.07 K/uL (0-0.2) 11/10/21 07:32 Immature Gran # (Auto) 0.02 K/uL (0.00-0.02) 11/10/21 07:32 PT 11.9 Seconds (9.0-12.0) 11/09/21 12:14 INR 1.1 (0.9-1.1) 11/09/21 12:14 Sodium 134 mmol/L (136-145) L 11/10/21 07:32 Potassium 3.6 mmol/L (3.5-5.1) 11/10/21 07:32 Chloride 102 mmol/L (98-107) 11/10/21 07:32 Carbon Dioxide 23 mmol/L (21-32) 11/10/21 07:32 Anion Gap 9 (3-11) 11/10/21 07:32 BUN 11 mg/dl (6-23) 11/10/21 07:32 Creatinine 0.48 mg/dl (0.6-1.2) L 11/10/21 07:32 Est Cr Clr Drug Dosing 66.9 ml/min 11/10/21 07:32 Est GFR ( Amer) 109.7 ml/min 11/10/21 07:32 Est GFR (Non-Af Amer) 94.6 ml/min 11/10/21 07:32 BUN/Creatinine Ratio 22.9 (10-20) H 11/10/21 07:32 Glucose 106 mg/dl (70-99(Fasting)) H 11/10/21 07:32 Calcium 8.9 mg/dl (8.5-10.1) 11/10/21 07:32 Total Bilirubin 11.0 mg/dl (0.2-1.0) H 11/10/21 07:32 Direct Bilirubin 6.2 mg/dl (0-0.2) H 11/09/21 14:06 AST 126 U/L (13-39) H 11/10/21 07:32 ALT 169 U/L (7-52) H 11/10/21 07:32 Alkaline Phosphatase 643 U/L (34-104) H 11/10/21 07:32 Total Protein 6.0 gm/dl (6.0-8.3) 11/10/21 07:32 Albumin 3.4 gm/dl (3.4-5.0) 11/10/21 07:32 Globulin 2.6 gm/dl (2.5-4.0) 11/10/21 07:32 Albumin/Globulin Ratio 1.3 (0.9-2) 11/10/21 07:32 Lipase 16 U/L (11-82) 11/09/21 12:14 Urine Color Dark Yellow 11/09/21 15:45 Urine Appearance Clear (Clear) 11/09/21 15:45 Urine pH 6.5 (4.5-7.5) 11/09/21 15:45 Ur Specific [place] 1.041 (1.000-1.030) H 11/09/21 15:45 Urine Protein Negative (Negative) 11/09/21 15:45 Urine Glucose (UA) Negative (Negative) 11/09/21 15:45 Urine Ketones Negative (Negative) 11/09/21 15:45 Urine Blood 1+ (Negative) H 11/09/21 15:45 Urine Nitrite Negative (Negative) 11/09/21 15:45 Urine Bilirubin 2+ (Negative) H 11/09/21 15:45 Urine Urobilinogen Negative (Negative) 11/09/21 15:45 Ur Leukocyte Esterase 2+ (Negative) H 11/09/21 15:45 Urine WBC (Auto) >30 /hpf (0-5) H 11/09/21 15:45 Urine RBC (Auto) 10-30 /hpf (0-4) H 11/09/21 15:45 U Hyaline Cast (Auto) 1-5 /lpf (0-5) 11/09/21 15:45 U Epithel Cells (Auto) >30 /lpf (0-5) H 11/09/21 15:45 Urine Bacteria (Auto) 1+ (Negative) H 11/09/21 15:45 SARS-CoV-2, RNA, NAAT NEGATIVE (NEGATIVE) 11/09/21 14:15 Impressions Abdomen/Pelvis CT 11/09/21 13:50 CT OF THE ABDOMEN AND PELVIS WITH CONTRAST CLINICAL HISTORY: Painless jaundice. COMPARISON STUDY: None. TECHNIQUE: Following IV administration of 93 mL of Optiray, axial images of the abdomen and pelvis were obtained from the lung bases to the proximal femurs. Images were reviewed in the axial, sagittal, and coronal planes. IV contrast was administered without complication. Automated exposure control was utilized for the study. A dose lowering technique was utilized adhering to the principles of ALARA. CT DOSE: 255.05 mGy.cm FINDINGS: Lung bases are unremarkable. No pneumatosis, free air or portal venous gas is present. Note is made of moderate to marked biliary and pancreatic ductal dilatation. Common bile duct measures 1.9 cm in caliber. Main pancreatic duct measures 1.1 cm in caliber. There is pancreatic glandular atrophy. Caliber change of the pancreatic duct within the region of the pancreatic head on axial image 158 is noted. Although not well delineated, the findings are suspicious for an underlying pancreatic or ampullary mass. No lymphadenopathy is present. Gallbladder is mildly distended. There is layering material within the gallbladder. This may reflect sludge. No suspicious hepatic lesions are present. 5.3 cm lateral segment cyst is present. A 1.4 cm left adrenal nodule is noted. Right adrenal gland and spleen are unremarkable. Right kidney is normal. A few suspected cysts within the upper pole of the left kidney are present. Note is made of a prominent left para-aortic lymph node on axial image 139 of 416 and measures 1.2 x 0.8 cm. This is just below the level of the left renal artery. No pathologically enlarged lymph nodes are present. There is no evidence for a bowel obstruction. Caliber and wall thickness of small and large bowel are normal. The appendix is normal. No acute fracture or suspicious lesion within the visualized skeletal structures is present. There is moderate aortoiliac atherosclerotic plaque. IMPRESSION: 1. Moderate to marked biliary and pancreatic ductal dilatation with ductal caliber change at the level of the pancreatic head. 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 An obstructing calculus is also within the differential but considered less likely. GI consultation for consideration for ERCP is recommended. 2. Prominent left para-aortic lymph node and a 1.4 cm left adrenal nodule. These are indeterminate and should be assessed on follow-up exams to ensure stability. 3. No suspicious hepatic lesions. ACT 112: Positive. There are findings on this exam that require communication between the performing entity and the patient following Patient Test Result Information Act ([place] Act 112) guidelines. Electronically signed by: Heriberto Edwards M.D. 11/09/2021 3:16 PM Medications Administered Current Medications Atropine Sulfate (Atropine Sulfate 0.1 Mg/Ml 10ml Syr) 0.5 mg IV Q1M PRN PRN Reason: PACU Use-HR<40 &/or Bradycardi Stop: 11/10/21 21:02 Ephedrine Sulfate (Ephedrine Sulfate 50 Mg/Ml Amp) 5 mg IV Q5M PRN PRN Reason: PACU Use Only-SBP<90 mmHg Stop: 11/10/21 21:02 Fentanyl Citrate (Fentanyl Citrate 100 Mcg/2 Ml Vial) 25 mcg IV Q5M PRN PRN Reason: PACU Use Only-Pain Stop: 11/10/21 21:02 Flumazenil (Flumazenil 0.1 Mg/1 Ml 10 Ml Vial) 0.2 mg IV Q2M PRN PRN Reason: PACU Use Only-Benzo Reversal Stop: 11/10/21 21:02 Lactated Ringer's (Lr) 1,000 mls @ 80 mls/hr IV .[id number] Stop: 12/09/21 21:44 Last Admin: 11/10/21 11:27 Dose: 80 mls/hr Documented by: Acetaminophen (Ofirmev) 1,000 mg in 100 mls @ 400 mls/hr IV Q8H PRN PRN Reason: Headache Stop: 11/13/21 10:44 Promethazine HCl 12.5 mg/ (Sodium Chloride) 50.5 mls @ 204 mls/hr IV ONCE PRN PRN Reason: PACU Use Only-Nausea/Vomiting Stop: 11/10/21 21:02 Ciprofloxacin (Cipro / D5w) 400 mg in 200 mls @ 100 mls/hr IV PREOP@1330 SHERYL; Protocol Stop: 11/10/21 23:59 Labetalol HCl (Labetalol Hcl Iv 5 Mg/Ml 20ml) 5 mg IV Q5M PRN PRN Reason: PACU Use-SBP>160 or DBP>100 Stop: 11/10/21 21:02 Naloxone HCl (Naloxone Hcl 0.4 Mg/1 Ml Vial/Carp) 0.2 mg IV Q2M PRN PRN Reason: PACU Use Only-Opiate Reversal Stop: 11/10/21 21:02 Ondansetron HCl (Ondansetron Inj 2 Mg/Ml 2 Ml Vial) 4 mg IV Q6H PRN PRN Reason: Nausea And Vomiting Stop: 12/10/21 01:30 Last Admin: 11/10/21 01:43 Dose: 4 mg Documented by: Ondansetron HCl (Ondansetron Inj 2 Mg/Ml 2 Ml Vial) 4 mg IV ONCE PRN PRN Reason: PACU Use Only-Nausea/Vomiting Stop: 11/10/21 21:02
[2021-11-10] MEDS ORDERED: ROCURONIUM BROMIDE 10 MG/ML 5 ML VIAL IV ONE (16:42)
--- NOTE | 2021-11-10 16:43 | Post Operative Brief Note ---
Immediate Post Op Note v1 Date of Surgery November 10, 2021 Pre & Post Diagnosis Operation Date: 11/10/21 08:55 <No data on this case meets the specified criteria> Operation Date: 11/10/21 12:00 Pre-Op Diagnosis: PAINLESS JAUNDICE I identified the patient and participated in the time-out.: Yes Procedure Operation Date: 11/10/21 08:55 <No data on this case meets the specified criteria> Operation Date: 11/10/21 12:00 Actual Procedures p EUS, ERCP - Omid Pop DO Surgeon Omid Pop DO Sueding Machine Operator None Estimated Blood Loss 0 Findings Consistent with Post-Op Diagnosis
--- NOTE | 2021-11-10 16:45 | Communication Note ---
Date of Service: November 10, 2021 The patient underwent upper endoscopy endoscopic ultrasound and ERCP this afternoon. The patient was found to have a pancreatic mass which was obstructing the distal common bile duct. Fine-needle aspiration was obtained and sent to the laboratory for analysis the patient's ERCP was quite difficult due to obstruction caused by the mass. We were finally able to cannulate the biliary tree and had mild appointment of a [place] viable stent. The stent had to be removed after which two double-pigtail plastic stents were placed into the biliary tree. Recommendations Continue IV hydration overnight Ciprofloxacin twice daily for 5 days Await cytology results Avoid nonsteroidals and anticoagulation for 5 days please
--- NOTE | 2021-11-10 16:52 | GI REPORT ---
Patient Name: Amisha Amaral Procedure Date: 11/10/2021 1:26 PM Date of : 1945 Admit Type: Inpatient Age: 76 Gender: Female Attending MD: Omid Pop DO Procedure: Upper EUS Providers: Omid Pop DO Referring MD: Shamir Carson Indications: Suspected mass in pancreas on CT scan Medicines: General Anesthesia Complications: No immediate complications. Estimated blood loss: Minimal. Estimated Blood Loss: Estimated blood loss was minimal. Procedure: Pre-Anesthesia Assessment: - Prior to the procedure, a History and Physical was performed, and patient medications, allergies and sensitivities were reviewed. The patient's tolerance of previous anesthesia was reviewed. - The risks and benefits of the procedure and the sedation options and risks were discussed with the patient. All questions were answered and informed consent was obtained. - Patient identification and proposed procedure were verified prior to the procedure by the physician, the nurse and the gate manager. The procedure was verified in the procedure room. - Pre-procedure physical examination revealed no contraindications to sedation. - ASA Grade Assessment: IV - A patient with severe systemic disease that is a constant threat to life. - After reviewing the risks and benefits, the patient was deemed in satisfactory condition to undergo the procedure. - The anesthesia plan was to use general anesthesia. - Immediately prior to administration of medications, the patient was re-assessed for adequacy to receive sedatives. - The heart rate, respiratory rate, oxygen saturations, blood pressure, adequacy of pulmonary ventilation, and response to care were monitored throughout the procedure. - The physical status of the patient was re-assessed after the procedure. After obtaining informed consent, the endoscope was passed under direct vision. Throughout the procedure, the patient's blood pressure, pulse, and oxygen saturations were monitored continuously. The scope was introduced through the mouth, and advanced to the second part of duodenum. The upper EUS was accomplished without difficulty. The patient tolerated the procedure well. Findings: ENDOSONOGRAPHIC FINDING: : There was no sign of significant endosonographic abnormality in the ampulla. No pathologic lymphadenopathy was identified. A cyst was found in the left lobe of the liver and measured 40 mm by 42 mm in maximal cross-sectional diameter. The cyst was anechoic. It was without septae. The outer wall of the lesion was not seen. Intrahepatid ductal dilation There was dilation in the common bile duct which measured up to 14 mm. An abrupt cut off was noted in the distal common bile duct within the intrapancreatic portion of the common bile duct consistent with a pancreatic mass. An oval mass was identified in the pancreatic head. The mass was hypoechoic. The mass measured 31 mm by 22 mm in maximal cross-sectional diameter. The endosonographic borders were poorly-defined. There was sonographic evidence suggesting invasion into the portal vein (manifested by interface loss less than 15 mm). An intact interface was seen between the mass and the duodenum suggesting a lack of invasion. The remainder of the pancreas was examined. The endosonographic appearance of parenchyma and the upstream pancreatic duct indicated duct dilation, a maximum duct diameter of 6 mm and parenchymal atrophy. Fine needle aspiration for cytology was performed. Color Doppler imaging was utilized prior to needle puncture to confirm a lack of significant vascular structures within the needle path. Seven passes were made with the 22 gauge needle and with the 25 gauge needle using a transduodenal approach. A stylet was used. A labor relations officer was present to evaluate the adequacy of the specimen. Final cytology results are pending. Estimated blood loss was minimal. No lymphadenopathy seen. On endosonographic examination, the left adrenal gland appeared mildly enlarged. It measured 20 mm by 9 mm in maximal cross-sectional diameter. Impression: - There was no sign of significant pathology in the ampulla. - A cyst was found in the left lobe of the liver and measured 40 mm by 42 mm. - There was dilation in the common bile duct which measured up to 14 mm. - A mass was identified in the pancreatic head. This was staged T3 N0 M0 by endosonographic criteria. The staging applies if malignancy is confirmed. Fine needle aspiration performed. - The left adrenal gland appeared mildly enlarged on endosonographic examination. Recommendation: - Perform an upper endoscopic ultrasound (UEUS) today. Omid Pop D.O. Omid Pop DO 11/10/2021 4:51:48 PM This report has been signed electronically. Note Initiated On: 11/10/2021 1:26 PM Number of Addenda: 0 I attest to the content of the Intraoperative Record and orders documented therein, exceptions below {[id number]}
[2021-11-10] MEDS ORDERED: GLUCAGON FOR INJ 1 MG VIAL ONE (17:01)
--- NOTE | 2021-11-10 17:04 | GI REPORT ---
Patient Name: Amisha Amaral Procedure Date: 11/10/2021 1:26 PM Date of : 1945 Admit Type: Inpatient Age: 76 Gender: Female Attending MD: Omid Pop DO Procedure: ERCP Providers: Omid Pop DO Referring MD: Shamir Carson Indications: Jaundice, Malignant tumor of the head of pancreas Medicines: General Anesthesia Complications: No immediate complications. Estimated blood loss: Minimal. Estimated Blood Loss: Estimated blood loss was minimal. Procedure: Pre-Anesthesia Assessment: - Prior to the procedure, a History and Physical was performed, and patient medications, allergies and sensitivities were reviewed. The patient's tolerance of previous anesthesia was reviewed. - The risks and benefits of the procedure and the sedation options and risks were discussed with the patient. All questions were answered and informed consent was obtained. - Patient identification and proposed procedure were verified prior to the procedure by the physician, the nurse and the shuttle repairer. The procedure was verified in the procedure room. - Pre-procedure physical examination revealed no contraindications to sedation. - ASA Grade Assessment: IV - A patient with severe systemic disease that is a constant threat to life. - After reviewing the risks and benefits, the patient was deemed in satisfactory condition to undergo the procedure. - The anesthesia plan was to use general anesthesia. - Immediately prior to administration of medications, the patient was re-assessed for adequacy to receive sedatives. - The heart rate, respiratory rate, oxygen saturations, blood pressure, adequacy of pulmonary ventilation, and response to care were monitored throughout the procedure. - The physical status of the patient was re-assessed after the procedure. After obtaining informed consent, the scope was passed under direct vision. Throughout the procedure, the patient's blood pressure, pulse, and oxygen saturations were monitored continuously. The Duodenoscope was introduced through the mouth, and advanced to the duodenum and used to inject contrast into the bile duct and ventral pancreatic duct. The patient tolerated the procedure well. The ERCP was determined to be ASGE Difficulty Grade 2 due to challenging cannulation. Successful completion of the procedure was aided by performing the maneuvers documented (below) in this report. Findings: The heavy line technician film was normal. The esophagus was successfully intubated under direct vision without detailed examination of the pharynx, larynx, and associated structures, and upper GI tract. The upper GI tract was grossly normal. The major papilla was normal. The ventral pancreatic duct was inadvertently cannulated with the short-nosed traction sphincterotome and 0.03t in Acrobat 2 guidewire without any complications. The wire was left in place to aid in biliary cannualtion and later place a pancreatic stent.. The bile duct could not be cannulated with the short-nosed traction sphincterotome and guidewire (multiple combinations were used to include a 0.025 Acrobat 2 and 0.025 in Visiglide). A ventral pancreatic sphincterotomy was made with a monofilament Dreamtome sphincterotome using ERBE electrocautery. There was no post-sphincterotomy bleeding. One 5 Fr by 7 cm pancreatic stent with a full external pigtail and no internal flaps was placed 7 cm into the dorsal pancreatic duct. Clear fluid flowed through the stent. The stent was in good position. The bile duct was ultimatly deeply cannulated with the short-nosed traction sphincterotome and 0.025 in angled visiglide guidewire. Contrast was injected. I personally interpreted the bile duct images. Contrast extended to the bifurcation. The middle third of the main bile duct, upper third of the main bile duct and common hepatic duct were severely dilated, with a mass causing an obstruction. The largest diameter was 14 mm. A 20 to 30 mm tight stricture consistent with a pancratic head mass was noted in the distal bile duct. The biliary sphincterotomy was extended with a monofilament Fusion OMNI sphincterotome using ERBE electrocautery. There was no post-sphincterotomy bleeding. One 10 Fr by 8 cm covered metal stent ([place] Viabil) was placed into the common bile duct. The stent deployment was compromised with part of the stent deployment device broken off. One stent was removed from the biliary tree using a rat-toothed forceps (over 60 minutes of time was required for retrieval). The bile duct was deeply cannulated with the short-nosed traction sphincterotome and 0.035 in Acrobat 2 guidewire. Contrast was injected to ensure placment within the biliary tree. Two 7 Fr by 7 cm biliary stents with a full external pigtail and a full internal pigtail were placed 7 cm into the common bile duct. Bile flowed through the stents. The stents were in good position. The endoscope was withdrawn from the patient. The total fluoroscopy exposure time was 7 minutes and 2 seconds. Indomethacin 100 mg was given via suppository to decrease the risk of post-ERCP pancreatitis (PEP). Impression: - The major papilla appeared normal. - The upper third of the main bile duct, middle third of the main bile duct and common hepatic duct were severely dilated, with a mass causing an obstruction. - A pancreatic sphincterotomy was performed. - A biliary sphincterotomy was performed. - Two plastic biliary stents were placed into the common bile duct. - One plastic pancreatic stent was placed. - Indomethacin given to decrease risk of post-ERCP pancreatitis. Recommendation: - Avoid aspirin and nonsteroidal anti-inflammatory medicines for 5 days. - Use broad spectrum antibiotics for 5 days. - Await pathology results. Omid Pop D.O. Omid Pop, 11/10/2021 5:04:06 PM This report has been signed electronically. Note Initiated On: 11/10/2021 1:26 PM Number of Addenda: 0 I attest to the content of the Intraoperative Record and orders documented therein, exceptions below {[id number]}
--- NOTE | 2021-11-10 17:08 | Fluoroscopy Report ---
[place] ERCP biliary ductal CLINICAL HISTORY: EXPLORE DUCTS COMPARISON STUDY: CT of the abdomen and pelvis November 09, 2021. FLUOROSCOPY TIME: 7 minutes and 6 seconds. FLUOROSCOPIC IMAGES: 8 FINDINGS: Fluoroscopy was provided during ERCP. Pancreatic duct was cannulated and a pancreatic stent was placed. Common bile duct was also cannulated and a stent within the common bile duct was placed. Abrupt cut off of the common bile duct is noted with upstream dilatation. This is likely due to an u nderlying pancreatic mass. IMPRESSION: Fluoroscopy provided during ERCP with placement of biliary and pancreatic stents. ACT 112: Negative or not required by law. Electronically signed by: Heriberto Edwards M.D. 11/10/2021 5:06 PM
--- NOTE | 2021-11-10 17:32 | Anesthesiology Progress Note ---
Date of Service November 10, 2021 Anesthesia Post Procedure Vital Signs Vital Signs: Temp Pulse Pulse Pulse Resp BP BP 11/10/21 17:15 71 18 170/85 H 11/10/21 17:05 71 19 167/89 H 11/10/21 16:55 71 16 169/89 H 11/10/21 16:46 36.0 C L 77 16 173/90 H 11/10/21 12:56 36.7 C 84 16 11/10/21 07:14 36.7 C 83 16 155/88 H 11/09/21 22:55 36.7 C 80 16 129/64 11/09/21 20:25 36.7 C 80 18 155/95 H 11/09/21 20:00 79 18 153/106 H 11/09/21 19:30 72 19 162/90 H 11/09/21 19:00 71 19 158/99 H 11/09/21 18:30 76 21 141/102 H 11/09/21 18:01 71 21 114/81 11/09/21 18:00 76 22 Pulse Ox 11/10/21 17:15 96 11/10/21 17:05 100 11/10/21 16:55 100 11/10/21 16:46 100 11/10/21 12:56 97 11/10/21 07:14 94 11/09/21 22:55 94 11/09/21 20:25 97 11/09/21 20:00 97 11/09/21 19:30 96 11/09/21 19:00 97 11/09/21 18:30 11/09/21 18:01 11/09/21 18:00 Pain Intensity Head: Pain Intensity: 10 Transfer of Care Handoff Completed per policy Notes Mental Status: alert / awake / arousable Patient Amnestic to Procedure: Yes Nausea / Vomiting: adequately controlled Pain: adequately controlled Airway Patency, RR, SpO2: stable & adequate BP & HR: stable & adequate Hydration State: stable & adequate Anesthetic Complications: no major complications apparent
[2021-11-11] MEDS ORDERED: CIPROFLOXACIN / D5W 400 MG/200 ML BAG IV SCH (02:00)
[2021-11-11 07:45] LABS: Hematocrit (blood only) 35.4 % (37-47); Hemoglobin 12.2 g/dL (12.0-16.0); Mean Corpuscular Hemoglobin 30.8 pg (25-34); Mean Corpuscular Hgb Conc 34.5 g/dL (32-36); Mean Corpuscular Volume 89.4 fL (80-100); Mean Platelet Volume 11.6 fL (7.4-10.4); Platelet Count 334 K/uL (130-400); RDW Coefficient of Variation 15.4 % (11.5-14.5); RDW Standard Deviation 50.6 fL (36.4-46.3); Red Blood Count 3.96 M/uL (4.2-5.4)
--- NOTE | 2021-11-11 08:20 | Gastroenterology Progress Note ---
Date of Service November 11, 2021 Assessment & Plan (1) Painless jaundice: Plan: 76 year old female admitted with painless jaundice, imaging concerning for double duct sign concerning for an underlying malignancy. She does report nausea/vomiting/diarrhea and weight loss about 1-2 weeks ago but symptoms resolved S/P EGD/EUS/ERCP with evidence of pancreatic mass which was obstructing the distal common bile duct s/p stenting, AM labs show improving transaminases with a TBili trend of 12 --> 6.7 - Can continue advancing diet as tolerated - No GI contraindication to discharge - Avoid aspirin and nonsteroidal anti-inflammatory medicines for 5 days. - Use broad spectrum antibiotics for 5 days. - Await pathology results. Thank you for allowing us to participate in the care of this patient. Please call with any acute changes, questions or concerns. Please see addendum below with additional recommendation from my supervising physician. Admission and Anticipated Discharge Date Admission Date: November 09, 2021 Supervising Physician Co-Signing Physician Notes The patient was discharged prior to afternoon rounds as she was feeling quite well after her ERCP from yesterday afternoon. We are awaiting cytology results and will make referral to medical oncology and surgical oncology for outpatient evaluation. Subjective Pt was seen and evaluated, chart reviewed. Feeling well. Wants to go home. Denies any abdominal pain. No nausea, vomiting Tolerating PO intake. EGD/EUS/ERCP reviewed with patient. ERCP 2021: The major papilla appeared normal. - The upper third of the main bile duct, middle third of the main bile duct and common hepatic duct were severely dilated, with a mass causing an obstruction. - A pancreatic sphincterotomy was performed. - A biliary sphincterotomy was performed. - Two plastic biliary stents were placed into the common bile duct. - One plastic pancreatic stent was placed. - Indomethacin given to decrease risk of post-ERCP pancreatitis.EUS 2021: There was no sign of significant pathology in the ampulla. - A cyst was found in the left lobe of the liver and measured 40 mm by 42 mm. - There was dilation in the common bile duct which measured up to 14 mm. - A mass was identified in the pancreatic head. This was staged T3 N0 M0 by endosonographic criteria. The staging applies if malignancy is confirmed. Fine needle aspiration performed. - The left adrenal gland appeared mildly enlarged on endosonographic examination. EGD 2021: Normal esophagus. - Z-line regular, 38 cm from the incisors. - Normal stomach. - Normal examined duodenum. - No specimens collected Review of Systems Review of Systems: All systems reviewed & are unremarkable except as noted in HPI & below Physical Exam Constitutional: WD/WN, vitals as above Neck: trachea midline Respiratory: normal respiratory effort, lungs clear to auscultation Cardiovascular: Rate/Rhythm: regular rate and regular rhythm Gastrointestinal (Abdomen): normal bowel sounds, soft, nontender, no hepatosplenomegaly Skin: no rashes, warm and dry Results & Data ([facility]) Vital Signs (Past 12 Hours) Vital Signs Temp Pulse Resp BP BP Pulse Ox 11/11/21 07:11 36.2 C L 78 16 134/60 95 11/11/21 04:42 36.6 C 98 H 16 161/80 H 96 11/10/21 22:09 36.9 C 103 H 16 160/77 H 94 Laboratory Results 11/11/21 11/11/21 11/10/21 Range/Units 07:30 07:30 07:32 WBC 9.50 (4.8-10.8) K/uL RBC 3.96 L (4.2-5.4) M/uL Hgb 12.2 (12.0-16.0) g/dL Hct 35.4 L (37-47) % MCV 89.4 (80-100) fL MCH 30.8 (25-34) pg MCHC 34.5 (32-36) g/dL RDW Std Deviation 50.6 H (36.4-46.3) fL RDW Coeff of Artie 15.4 H (11.5-14.5) % Plt Count 334 (130-400) K/uL MPV 11.6 H (7.4-10.4) fL Immature Gran % (Auto) % Neut % (Auto) % Lymph % (Auto) % Faulk % (Auto) % Eos % (Auto) % Baso % (Auto) % Neut # (Auto) (1.4-6.5) K/uL Lymph # (Auto) (1.2-3.4) K/uL Faulk # (Auto) (0.11-0.59) K/uL Eos # (Auto) (0-0.5) K/uL Baso # (Auto) (0-0.2) K/uL Immature Gran # (Auto) (0.00-0.02) K/uL Sodium 137 (136-145) mmol/L Potassium 3.5 (3.5-5.1) mmol/L Chloride 103 (98-107) mmol/L Carbon Dioxide 27 (21-32) mmol/L Anion Gap 7 (3-11) BUN 12 (6-23) mg/dl Creatinine 0.59 L (0.6-1.2) mg/dl Est Cr Clr Drug Dosing 54.5 ml/min Est GFR ( Amer) 102.5 ml/min Est GFR (Non-Af Amer) 88.4 ml/min BUN/Creatinine Ratio 20.3 H (10-20) Glucose 109 H (70-99(Fasting)) mg/dl Calcium 8.8 (8.5-10.1) mg/dl Total Bilirubin 6.7 H (0.2-1.0) mg/dl AST 88 H (13-39) U/L ALT 138 H (7-52) U/L Alkaline Phosphatase 587 H (34-104) U/L Total Protein 6.0 (6.0-8.3) gm/dl Albumin 3.3 L (3.4-5.0) gm/dl Globulin 2.7 (2.5-4.0) gm/dl Albumin/Globulin Ratio 1.2 (0.9-2) Hepatitis C Ab (EIA) NON-REACTIVE (NON-REACTIVE) Hep C Ab Signal/Cutoff 0.04 (<1.00) 11/10/21 11/10/21 Range/Units 07:32 07:32 WBC (4.8-10.8) K/uL RBC (4.2-5.4) M/uL Hgb (12.0-16.0) g/dL Hct (37-47) % MCV (80-100) fL MCH (25-34) pg MCHC (32-36) g/dL RDW Std Deviation (36.4-46.3) fL RDW Coeff of Artie (11.5-14.5) % Plt Count (130-400) K/uL MPV (7.4-10.4) fL Immature Gran % (Auto) 0.2 % Neut % (Auto) 70.1 % Lymph % (Auto) 20.7 % Faulk % (Auto) 5.8 % Eos % (Auto) 2.5 % Baso % (Auto) 0.7 % Neut # (Auto) 6.59 H (1.4-6.5) K/uL Lymph # (Auto) 1.95 (1.2-3.4) K/uL Faulk # (Auto) 0.55 (0.11-0.59) K/uL Eos # (Auto) 0.24 (0-0.5) K/uL Baso # (Auto) 0.07 (0-0.2) K/uL Immature Gran # (Auto) 0.02 (0.00-0.02) K/uL Sodium 134 L (136-145) mmol/L Potassium 3.6 (3.5-5.1) mmol/L Chloride 102 (98-107) mmol/L Carbon Dioxide 23 (21-32) mmol/L Anion Gap 9 (3-11) BUN 11 (6-23) mg/dl Creatinine 0.48 L (0.6-1.2) mg/dl Est Cr Clr Drug Dosing 66.9 ml/min Est GFR ( Amer) 109.7 ml/min Est GFR (Non-Af Amer) 94.6 ml/min BUN/Creatinine Ratio 22.9 H (10-20) Glucose 106 H (70-99(Fasting)) mg/dl Calcium 8.9 (8.5-10.1) mg/dl Total Bilirubin 11.0 H (0.2-1.0) mg/dl AST 126 H (13-39) U/L ALT 169 H (7-52) U/L Alkaline Phosphatase 643 H (34-104) U/L Total Protein 6.0 (6.0-8.3) gm/dl Albumin 3.4 (3.4-5.0) gm/dl Globulin 2.6 (2.5-4.0) gm/dl Albumin/Globulin Ratio 1.3 (0.9-2) Hepatitis C Ab (EIA) (NON-REACTIVE) Hep C Ab Signal/Cutoff (<1.00)
[2021-11-11 08:21] LABS: Albumin Globulin Ratio 1.2 (0.9-2); Albumin Level 3.3 gm/dl (3.4-5.0); BUN Creatinine Ratio 20.3 (10-20); Bilirubin,Total 6.7 mg/dl (0.2-1.0); Calcium 8.8 mg/dl (8.5-10.1); Creatinine Clr Calc Pharmacy 54.5 ml/min; Est GFR (African American) 102.5 ml/min; Est GFR (Non-African American) 88.4 ml/min; Globulin 2.7 gm/dl (2.5-4.0); Potassium 3.5 mmol/L (3.5-5.1)
[2021-11-11] MEDS: LACTATED RINGER'S 1,000 ML IV SCH (11:08)
--- NOTE | 2021-11-11 13:22 | Discharge Summary ---
Date of Service November 11, 2021 Admission HPI Per Admitting Provider Amisha Amaral is a 76 year old female who presents to the ER with increased yellowing of the skin for the last 2 weeks. She reports 2 weeks ago having some abdominal pain but not since then. She denies any chest pain, shortness of breath, fever, chills, diarrhea, constipation, nausea or vomiting. She was advised by a friend to come to the ER due to progressive yellowing of her skin. In the ER total bilirubin 12.4, direct 6.2, AST 148, ALT 217, ALP 738. CT abdomen/pelvis concerning for moderated to marked biliary and pancreatic ductal dilatation with ductal caliber change at the level of the pancreatic head. She was referred to medicine for admission and ongoing management of painless jaundice and possible pancreatic mass. Principal Diagnosis Painless jaundice secondary to common bile duct obstruction Discharge Exam Constitutional well developed, + ill appearing, + cachectic and + frail appearing; + not well nourished and no acute distress Eyes sclerae not anicteric ENMT external ear and nose normal, oropharynx normal Mouth: + dentures Neck trachea midline, no thyromegaly normal visual inspection Respiratory normal respiratory effort, lungs clear to auscultation Cardiovascular RRR, no murmur, no edema Rate/Rhythm: regular rate and regular rhythm Heart Sounds: no murmur Vessels: no carotid bruit Gastrointestinal (Abdomen) Inspection/Auscultation: normal bowel sounds Percussion/Palpation: + abdomen tender (mild tenderness left upper quaderant) and abdomen soft; no guarding Musculoskeletal Spine: normal cervical ROM Skin no rashes, warm and dry + jaundice Neurologic moves all extremities and awake; no focal motor deficits and not confused Motor/Sensory: no sensory deficit Psychiatric A+Ox3, euthymic affect Orientation: alert and oriented x 3 Discharge Data Allergies Allergy/AdvReac Type Severity Reaction Status Date / Time grass pollen Allergy Swelling Unverified 11/09/21 16:04 of the Eye Consultations 11/09/21 15:42 ED Decision to Admit Stat 11/09/21 20:30 Consult Gastroenterology Routine Procedures Performed Operation Date: 11/10/21 08:55 <No data on this case meets the specified criteria> Operation Date: 11/10/21 12:00 Actual Procedures p EUS, ERCP - Omid Pop, Ordered Studies 11/09/21 13:50 CT abd pelvis IV con only Stat 11/10/21 [place] ERCP biliary ductal Routine 11/10/21 13:10 US upper EUS PACS images Routine Hospital Course (1) Painless jaundice: Mrs. Amaral is a 76 year old female admitted with painless progressive jaundice for the past few weeks. She reports having nausea, vomiting, diarrhea about 1-2 weeks ago due to a "stomach virus". She also reports weight loss. Remote history of smoking. Denies alcohol use. -Liver US with evidence of bile duct dilation at the level of pancreatic head -Bilirubin 12.4 at the ED. Trending down to 11.0, 6.7 at discharge -Alk phos 643, 587 at discharge -AST 88 and ALT 138 discharge -Suspicion for underlying obstructing mass. Likely adenocarcinoma of the pancreas -GI consult appreciated: -EUS/ERCP on 11/10 revealed common bile duct obstruction by mass -Stent placed in order to allow common bile duct flow -Biopsy of mass taken with pathology pending, appreciate GI participation in care -Ciprofloxacin twice a day for 5 days, patient received 2 doses in hospitalization so 4 days sent to pharmacy -Hold NSAIDs and any anticoagulation for 5 days -Follow-up with primary care provider in 1 week Plan: Diet: Transition to regular diet prior to discharge Code: Full Disposition: Discharge home Total Time Total Time Spent Total Time Spent (In Minutes): 30 Discharge Plan Discharge Items Patient Disposition: Home - Self-Care Reason For Visit: PAINLESS JAUNDICE Discharge Diagnosis: Painless jaundice secondary to pancreatic duct obstruction Activity: Per Instructions section Non-emergency contact: Primary Care Provider and Business Development Associate Call non-emergency contact if: you have any medication questions and your symptoms worsen Follow-up/Referrals: Charis Carlson CRNP [Primary Care Provider] - 11/14/21 2:00 pm Diet: Regular Addtl Attending Provider Instructions: You were seen in the hospital for the concern of yellowing of your skin. While you are here you had imaging that was suggestive of a blockage of your common bile duct. Because of this you were evaluated by the pathology lab technician, Dr. Pop. The best course of action at this time was to perform an ERCP to directly visualize the common bile duct and visualize the obstruction. It does appear that there is a mass at the pancreatic head that is pressing against the common bile duct that is the source of your yellowing of the skin or jaundice. The GI team was able to place a stent so that the pancreatic duct was opened back up. The stent will likely be permanent. While visualizing the mass, a biopsy was taken for which she will receive the results within the next couple weeks. Unfortunately, this mass is likely indicative of adenocarcinoma of the pancreas also known as pancreatic cancer. Although an official diagnosis cannot be determined until the biopsy results, however, your exam was very suggestive of this diagnosis during your stay. At this time we do feel it is safe for you to return home. I am sending 4 days worth of an antibiotic called ciprofloxacin to your pharmacy, please take this twice a day starting tonight as you received a dose this morning via your IV. Please take this medication completely to prevent an infection of your biliary tract. Additionally we also recommend that you do not take aspirin for 5 days after discharge while the stent heals in the place. It has been a pleasure to be a part of your care and we wish you the best in both your health and your recovery. Please follow-up with your primary care provider within 1 week after discharge. Pending Studies at Discharge: Yes Studies:: Biopsy of pancreatic mass. Stand-Alone Forms: My [facility] [employer], Smoking Cessation Medications and DC Order Prescriptions: New ciprofloxacin HCl 500 mg tablet 500 mg PO BID Qty: 8 RF: 0 Continued acetaminophen 325 mg Tablet 325 mg PO QID PRN (Reason: Pain) RF: 0 Discontinued aspirin [Adult Low Dose Aspirin] 81 mg tablet,delayed release (DR/EC) 81 mg PO DAILY RF: 0 Discharge Orders: Discharge Order (Routine); Ordered 11/11/21 Ordered By: Vinny Bales/Other Patient Handouts: Total Bilirubin (Blood), Anatomy of the Digestive System Admission Data Admit Date/Time: 11/09/21 17:31 Attending Provider: April Hsu Admit Provider: Marcel Ching Primary Care Provider: Charis Carlson Other Providers: Marcel Ching ; Omid Pop Other Interventions: Discharge Summary Assessment (RN) Last Done: 11/11/21 11:47 Supervising Physician Co-Signing Physician Notes Patient seen and examined with PGY-1 Dr. Crocker. Agree with history, exam findings, assessment and plan of care as outlined. In brief, Ms Amaral is a 76 year old female with no significant past medical history admitted with painless jaundice. Initial ultrasound showed evidence of bile duct dilation at the level of the pancreatic head. EUS and ERCP consistent with pancreatic mass obstructing the distal common bile duct. Stent plated. FNA obtained. Awaiting path but likely adenocarcinoma. Cipro x 5 days, no NSAIDS and anticoagulation x 5 days. Well appearing today. Nontender in the epigastric and RUQ. Minimal scleral icterus. Dispo: discharge home today. Dr. Pop will contact patient with path results. GI arranging for oncology care as well. I personally spent 25 minutes discharge planning for this patient.
== END 2021-11-11 12:05 | disposition home or self-care (01) | DRG 435 ==
LOC: ED 11:44 → SUATTDRO 17:31 → EDINP 17:31 → 3W 20:26
DX: I25.10 Atherosclerotic heart disease of native coronary artery without angina pectoris; R17 Unspecified jaundice; Z79.82 Long term (current) use of aspirin; C25.0 Malignant neoplasm of head of pancreas; Z95.5 Presence of coronary angioplasty implant and graft; K83.1 Obstruction of bile duct; Z87.891 Personal history of nicotine dependence; I25.2 Old myocardial infarction